=== PATIENT | male | born 1965 ===

== ENCOUNTER 2024-09-09 22:59 | Inpatient (IN) | payer BC, SELFPAY ==
[2024-09-09] VITALS (19 sets, daily range): BP systolic 76–121; BP diastolic 42–81
[2024-09-09] MEDS: AZACTAM 2000 MG IV (20:53)
[2024-09-09 20:54] LABS: Urine Albumin 1+ (Neg - Trace); Urine Bilirubin 1+ (Negative); Urine Character Slightly Cloudy (Clear); Urine Color Yellow; Urine Glucose Negative (Negative); Urine Ketone Trace (Negative); Urine Leukocyte Trace (Negative); Urine Nitrite Negative (Negative); Urine Occult Blood 4+ (Negative); Urine Urobilinogen 2+ (Neg - 1+)
[2024-09-09] MEDS: VANCOCIN 540 MG IV (20:54)
--- NOTE | 2024-09-09 20:54 | ED.GENMED ---
History of Present Illness
General
Chief Complaint: Fever
Source: patient and [facility] records
Exam Limitations: clinical condition and non verbal-adult
Time Seen by Provider: 09/09/24 20:11
Nursing documentation reviewed up to this point in time: agreed with
History of Present Illness
History of Present Illness:
59-year-old male from [facility] presents with fever,
EMS reports finding of tachypneic tachycardic hypotensive was started on IV fluids here he is high fever apparently had a stroke, colitis, has a G-tube with drainage, no indwelling catheter he has had aspiration pneumonia previously
Update discussed with son at bedside who is his power of piercer June 01 of this year he had what sounds like a hemorrhagic cerebellar stroke treated with craniotomy in [place] he was brought to a rehab facility few months ago to be
closer to his son son states he has had several episodes of pneumonia,
Past History
Past History
ED Past Medical History: Other (Stroke, aspiration pneumonia, colitis, G-tube)
Social History
Tobacco: Other
Alcohol: Other
Personal: Other
Living: [facility]
Employment: Not employed
Family History
Family History: Unable to obtain (Nonverbal)
Review of Systems
Review of Systems
Unable to obtain full review of systems at this time due to: non-verbal
Other source history: transfer record
All Other Systems: Not applicable
Phy Exam
Physical Exam
Physical Exam:
Physical Exam
General: Ill-appearing male nonverbal febrile hypotensive
Neck: Dry lip
Heart: Tachycardic
Lungs: Tachypneic rhonchi right greater than
Abdomen: Soft no guarding or rebound no Peoples catheter in place does have a G-tube
Neuro: Nonverbal minimally responsive
Skin: no rash
Psychiatric: Unable to assess
Extremities: no edema.
Sepsis
Sepsis Screening
Sepsis Assessment: Septic Shock
Sepsis Screening: Lactate >2mmol/L, Hypotension, Worsening O2 Saturation and Vasopressor support required
Sepsis Screen
Sepsis Screen: Septic Shock
Date: 09/09/24
Time: 21:21
Course
Orders/Labs/Results
Orders:
Orders
09/09/24 20:01
Electrocardiogram (*1) Urgent
Reason for Study: Other
Other Reason for Exam: Possible Sepsis
Cardiac Monitoring- Treatment ONCE
EKG- Treatment ONCE
IV Insert/Care/Rem.- Treatment PRN
Straight cath- Treatment ONCE
O2 Therapy [RESP] Urgent
Titrate/Wean O2 to maintain O2 sat greater than (%): 93
Special Instructions: TO MAINTAIN CONTINUOUS O2 SATS > OR = 93%
Pulse Ox/cont/shift [RESP] Urgent
Quantity: 1
Special Instructions: CONTINUOUS
09/09/24 20:02
Portable Chest Xray [CR Chest Portable - 1 View] Urgent
Comment:
Reason For Exam: sob
Reason Study Needs to be Portable: Patient Unstable
09/09/24 20:07
Acetaminophen [Tylenol/Feverall] 650 mg .ROUTE .STK-MED ONE
09/09/24 20:33
COVID-19 Antigen Urgent
Source: Nasal Swab
Complete Blood Count/With Diff Urgent
Comprehensive Metabolic Panel Urgent
Lactic Acid Q4H
Comment: ON ICE, CANCEL 2ND ORDER IF FIRST LACTIC ACID LEVEL <2
Urinalysis Reflex To Culture Urgent
Date Specimen was Collected: 09/09/24
Time Specimen was Collected: 20:01
Urine Microscopic Reflex Cult Urgent
Blood Culture Urgent
VINNY Source: Blood/Venous
Specimen Description:
Influenza A+B Rapid Molecular Urgent
VINNY Source: Nasal Swab
Specimen Description:
09/09/24 20:34
ABG [Arterial Blood Gas] Urgent
%Oxygen/Room Air: 4
Aztreonam [Azactam] 2,000 mg IV NOW STA
Vancomycin [Vancocin] 2,000 mg 0.9% Sodium Chloride 500 ml [Nss] 500 ml IV NOW
09/09/24 20:53
Blood Culture Urgent
VINNY Source: Blood/Venous
Specimen Description:
09/09/24 21:00
0.9% Sodium Chloride 1000 ml [Nss] 1,000 ml IV BOLUS
NORepinephrine 4 MG/250 ML [Levophed] 4 mg in 250 ml IV PER PROTOCOL
Initial dose in mcg/min, then titrate:: 2
Titrate to keep:: SBP > 90 mmHg
Titrate by mcg/min:: 1-2 mcg/min
Frequency of titrations (minutes):: 5
Maximum dose in ICU in mcg/min:: 30
Maximum dose in IMU in mcg/min:: 8
Maximum dose in IVU in mcg/min:: 4
Begin to taper infusion when:: Remained at goal for 4hrs
Taper by mcg/min:: 1-2 mcg/min
Frequency of taper (minutes) if patient maintains goal:: 30
Taper to off?: Yes
If infusion off & no longer maintaining goal:: Contact Provider
09/10/24 00:15
Lactic Acid Q4H
Comment: ON ICE, CANCEL 2ND ORDER IF FIRST LACTIC ACID LEVEL <2
Abnormal Lab Results
09/09/24
20:33
WBC 27.6 H 10^3/uL
(4.8-10.8)
RBC 3.72 L 10^6/uL
(4.70-6.10)
Hgb 11.4 L g/dL
(13.0-18.0)
Hct 34.7 L %
(39.0-52.0)
MCHC 32.9 L g/dL
(33.0-37.0)
RDW 15.1 H %
(11.5-14.5)
Abs Immat Gran (auto) 0.2 H 10^3/uL
(0-0.05)
Absolute Neuts (auto) 26.0 H 10^3/uL
(1.4-6.5)
Absolute Lymphs (auto) 0.5 L 10^3/uL
(1.2-3.4)
Absolute Monos (auto) 0.9 H 10^3/uL
(0.1-0.6)
Immature Gran % 0.7 H %
(0-0.5)
Neutrophils % 94.2 H %
(42.2-75.2)
Lymphocytes % 1.6 L %
(20.5-51.1)
Sodium 134 L mmol/L
(135-145)
BUN 34 H mg/dl
(9-20)
Glucose 102 H mg/dl
(70-99)
Lactic Acid 3.1 H mmol/L
(0.7-2.0)
ALT 52 H U/L
(0-50)
Total Protein 5.7 L g/dl
(6.3-8.2)
Albumin 2.9 L g/dl
(3.5-5.0)
Urine Ketones Trace A
(Negative)
Ur Occult Blood Reflex 4+ A
(Negative)
Urine Bilirubin 1+ A
(Negative)
Urine Urobilinogen 2+ A
(Neg - 1+)
Leukocyte Esterase Rfl Trace A
(Negative)
Urine RBC 11-15 A /HPF
(0-2)
Urine Albumin (Reflex) 1+ A
(Neg - Trace)
09/09/24 20:33
09/09/24 20:33
Vital Signs
Initial and Last Documented VS:
Initial Vital Signs
Pulse Resp BP Pulse Ox
149 15 121/81 90
09/09/24 20:01 09/09/24 20:01 09/09/24 20:01 09/09/24 20:01
Last Documented Vital Signs
Temp Pulse Resp BP Pulse Ox
102.4 F H 130 34 98/59 95
09/09/24 20:03 09/09/24 21:00 09/09/24 21:00 09/09/24 21:00 09/09/24 21:00
MDM/Problems Addressed
Differential Diagnosis Includes:
Sepsis UTI pneumonia bacteremia
MDM/Problems Addressed:
Fever
Chronic conditions affecting care:
jail resident, G-tube prior stroke
Chronic conditions affecting care: Neurological disorder
Acute Exacerbation and/or Progression of Chronic Illness: Neurological disorder
*Radiology
Radiology exam reviewed: radiology read reviewed
*Pulse Oximetry
Patient hypoxic: yes
*EKG
Interpretation: abnormal
Comparison EKG: no comparison EKG present
Heart Rate: 78
Rate: tachycardiac
Rhythm: sinus
Ischemia: non-specific ST changes
*House Manager Interpretation
Rate: normal and tachycardiac
Interpretation: normal
Heart Rate: 120
Rhythm: sinus
*Critical Care Note
Total Time (30-74mins, 75-104mins- exclusive of procedures): 31
Update Note
Update Note:
Update, patient with signs symptoms of sepsis, chest x-ray noted fits clinically, his abdomen is soft, urine is pending allergies are noted 30 cc/kg been ordered, antibiotics have been ordered Levophed on standby
CRITICAL CARE STATEMENT: A total of 31 minutes of critical care time was provided for this patient. This includes management of unstable vital signs, evaluation of the patient at bedside, reviewing the patient's pertinent medical records discussion
with EMS providers and patient's family in addition to discussion with consultants, review of old EKGs and review of pertinent medical records. This time with separate from time utilized to perform the aforementioned documented procedures
ED Attending Note
-
Portions of this chart may have been created with voice recognition software.� Occasional wrong word or��sound alike� substitutions may have occurred due to the inherent limitations of voice recognition software.
Discharge Plan
Departure
Patient Disposition: Admit
Date of Disposition: 09/09/24
Time of Disposition: 21:11
Admit to: ICU
Presentation/result/management discussed w/ accepting MD/DO: Hospitalist
Patient with high blood pressure during this ER visit?: No
Condition: Serious
Covid-19: Negative COVID-19
Discharge Problem:
Septic shock
Prescriptions:
No Action
methocarbamol 500 mg Tablet
500 mg feeding tube TID
atorvastatin 80 mg Tablet
80 mg feeding tube HS
acetaminophen [Tylenol] 325 mg Tablet
650 mg feeding tube Q4HPRN MDD 3000 mg PRN (Reason: mild pain/fever >100)
ipratropium-albuterol 0.5 mg-3 mg(2.5 mg base)/3 mL Solution For Nebulization
3 ml INHALATION R Q6HPRN PRN (Reason: wheezing)
polyethylene glycol 3350 17 gram Powder In Packet
17 g feeding tube DAILYPRN PRN (Reason: constipation)
naloxone 0.4 mg/mL Solution
0.4 mg SC DAILYPRN PRN (Reason: opioid reversal)
prochlorperazine maleate 5 mg Tablet
5 mg feeding tube Q6H
ondansetron HCl [Zofran] 4 mg Tablet
4 mg feeding tube Q6HPRN PRN (Reason: nausea/vomiting)
magnesium hydroxide [Milk of Magnesia] 400 mg/5 mL Suspension
30 ml feeding tube [id number] PRN (Reason: no bm 3 days)
meclizine 25 mg Tablet
25 mg feeding tube TID
bisacodyl [Dulcolax (bisacodyl)] 10 mg Suppository
10 mg IL DAILYPRN PRN (Reason: if mom is ineffective)
lidocaine 5 % Adhesive Patch,Medicated
1 patch TOPICAL DAILY
Fleet Enema 19-7 gram/118 mL Enema
118 ml IL DAILYPRN PRN (Reason: if dulcolax ineffective)
camphor-menthol 0.3-0.3 % Gel
1 ea TOPICAL Q8HPRN PRN (Reason: mild pain)
aspirin 81 mg Tablet,Chewable
81 mg feeding tube DAILY
scopolamine base 1 mg over 3 days Patch 3 Day
1 patch TRANSDERMAL Q72H
labetalol 100 mg Tablet
100 mg feeding tube Q8H
Rx Instructions:
Hold if SBP<100 and HR<60
fluticasone propionate 50 mcg/actuation [place],Suspension
1 spray INTRANASAL BID
simethicone 80 mg Tablet,Chewable
80 mg feeding tube Q6HPRN PRN (Reason: flatulence)
enoxaparin 40 mg/0.4 mL Syringe
40 mg SC DAILY
esomeprazole magnesium [address] For Susp In Packet
20 mg feeding tube DAILY
magnesium oxide 400 mg magnesium Tablet
400 mg feeding tube DAILY
banana [id number] 5 gram-45 kcal/60 mL Liquid In Packet
60 ml FEEDING TUBE TID
Interventions
Interventions:
*Risk Screen - Suicide Last Done: 09/09/24 20:03
*General Assessment Last Done: 09/09/24 20:03
*Neglect/Abuse Screening Last Done: 09/09/24 20:03
*ED COVID-19 Vaccine History Last Done: 09/09/24 20:03
Discharge Date and Time
Print Language: KHMER
[2024-09-09 20:56] LABS: Hematocrit 34.7 % (39.0-52.0); Hemoglobin 11.4 g/dL (13.0-18.0); Mean Corp Hgb Conc. 32.9 g/dL (33.0-37.0); Mean Corpuscular Hgb 30.6 pg (27.0-31.0); Mean Corpuscular Volume 93.3 fL (80.0-94.0); Mean Platelet Volume 10.4 fL (7.4-10.4); Platelet Count 309 10^3/uL (130-400); Red Blood Cell Count 3.72 10^6/uL (4.70-6.10); Red Cell Dist. Width 15.1 % (11.5-14.5); White Blood Cell Count 27.6 10^3/uL (4.8-10.8)
[2024-09-09 20:57] LABS: Lactic Acid 3.1 mmol/L (0.7-2.0)
[2024-09-09 21:02] LABS: COVID-19 Antigen Negative (Negative)
[2024-09-09 21:04] LABS: ALT (SGPT) 52 U/L (0-50); AST (SGOT) 40 U/L (17-59); Albumin 2.9 g/dl (3.5-5.0); Alkaline Phosphatase 63 U/L (38-126); Blood Urea Nitrogen 34 mg/dl (9-20); Calcium 8.5 mg/dl (8.4-10.2); Carbon Dioxide 25 mmol/L (22-30); Chloride 100 mmol/L (98-107); Glucose 102 mg/dl (70-99); Sodium 134 mmol/L (135-145); Total Bilirubin 0.9 mg/dl (0.2-1.3); Total Protein 5.7 g/dl (6.3-8.2); eGFR > 60.00
[2024-09-09] MEDS: NSS 1000 IV (21:05)
[2024-09-09 21:09] LABS: Urine Mucus Few; Urine Squamous Cell None seen /LPF (Few)
[2024-09-09 21:10] LABS: Urine Hyaline Cast 0-2 /LPF (0-2)
[2024-09-09 21:17] LABS: % Basophils 0.2 % (0-2); % Immature Granulocytes 0.7 % (0-0.5); % Lymphocytes 1.6 % (20.5-51.1); % Monocytes 3.3 % (1.7-9.3); % Neutrophils 94.2 % (42.2-75.2); Absolute Basophils 0.1 10^3/uL (0-0.2); Absolute Immature Granulocytes 0.2 10^3/uL (0-0.05); Absolute Lymphocytes 0.5 10^3/uL (1.2-3.4); Absolute Monocytes 0.9 10^3/uL (0.1-0.6); Nucleated Red Blood Cells % 0 % (-)
[2024-09-09] MEDS: LEVOPHED 250 IV (21:17)
[2024-09-09 22:16] LABS: B.E. -0.8 mmol/L; HCO3 23.4 mmol/L (21-28); O2 Saturation % 99.5 % (94-98); PCO2 36 mmHg (35-48); PO2 103 mmHg (83-108); pH 7.42 (7.35-7.45)
--- NOTE | 2024-09-09 22:48 | HPS.HSE ---
Family Physician
-
Family Physician: Francis Ramirez
Chief Complaint
-
Fever, SOB
History of Present Illness
Patient is a 59y M with PMH significant for hemorrhagic CVA (05/2024) who presents to ED for evaluation of fever and SOB noted at the nursing facility. History obtained from NH record, ED staff and son at the bedside. Patient is a 59y M who did
not have routine medical care prior to suffering a hemorrhagic CVA in 05/2024. He was hospitalized in [place] for a prolonged period of time and that stay was complicated by multiple episodes of pneumonia, aspiration, CDiff infection and
pulmonary embolism. He was treated with craniotomy for his hemorrhagic stroke. Patient was discharged to rehab here in [facility] to be closer to his son. He has had recurrent issues with aspiration - though he is NPO and receives all meds and
nutrition via J-tube. He was treated with an unknown antibiotic about 10 days ago for suspected aspiration pneumonia.
Yesterday evening, son noted that the patient seemed to have increased work of breathing and was less interactive. He has been having greater difficulty with speech over the past week or so.
Following his stroke, he has significant ataxia and L facial droop. He is able to move all extremities at baseline per his son. He has been unable to walk since his initial CVA.
Medical History
Past Medical History
Past Medical History: Reports Other
Additional Past Medical History:
Hemorrhagic Cerebellar CVA (05/2024)
Dysphagia / Dysarthria
Hypertension
Pulmonary Embolism
C Diff Colitis
Past Surgical History: Reports Other
Additional Past Surgical History:
Left Occipital Craniotomy
J-Tube Placement
IVC Filter Placement
Social History
Tobacco: Non-smoker
Alcohol: None
Drug: None
Family History
Family History: Hypertension and Other (Mother: CVA)
Allergies / Home Medications
Allergies reflects when Allergies were last updated in [facility].
Home Medications with original date entered in [facility]
Allergy/Medication List:
Allergies
Allergy/AdvReac Type Severity Reaction Status Date / Time
cefepime Allergy Unknown Verified 09/09/24 20:38
piperacillin [From Zosyn] Allergy Unknown Verified 09/09/24 20:38
tazobactam [From Zosyn] Allergy Unknown Verified 09/09/24 20:38
Home Medications
acetaminophen 325 mg tablet (Tylenol) 650 mg feeding tube Q4HPRN PRN mild pain/fever >100 09/09/24
aspirin 81 mg chewable tablet 81 mg feeding tube DAILY 09/09/24
atorvastatin 80 mg tablet 80 mg feeding tube HS 09/09/24
banana [id number] 5 gram-45 kcal/60 mL tube feed liquid packet 60 ml feeding tube TID 09/09/24
bisacodyl 10 mg rectal suppository (Dulcolax (bisacodyl)) 10 mg WA DAILYPRN PRN if mom is ineffective 09/09/24
camphor-menthol 0.3 %-0.3 % topical gel 1 ea topical Q8HPRN PRN mild pain 09/09/24
enoxaparin 40 mg/0.4 mL subcutaneous syringe 40 mg SC DAILY 09/09/24
esomeprazole magnesium 20 mg granules delayed release for susp 20 mg feeding tube DAILY 09/09/24
fluticasone propionate 50 mcg/actuation nasal spray,suspension 1 spray intranasal BID 09/09/24
ipratropium 0.5 mg-albuterol 3 mg (2.5 mg base)/3 mL nebulization soln 3 ml inhalation R Q6HPRN PRN wheezing 09/09/24
labetalol 100 mg tablet 100 mg feeding tube Q8H 09/09/24
lidocaine 5 % topical patch 1 patch topical DAILY back 09/09/24
magnesium hydroxide 400 mg/5 mL oral suspension (Milk of Magnesia) 30 ml feeding tube [id number] PRN no bm 3 days 09/09/24
magnesium oxide 400 mg feeding tube DAILY 09/09/24
meclizine 25 mg tablet 25 mg feeding tube TID 09/09/24
methocarbamol 500 mg tablet 500 mg feeding tube TID 09/09/24
naloxone 0.4 mg/mL injection solution 0.4 mg SC DAILYPRN PRN opioid reversal 09/09/24
ondansetron HCl 4 mg tablet 4 mg feeding tube Q6HPRN PRN nausea/vomiting 09/09/24
polyethylene glycol 3350 17 gram oral powder packet 17 g feeding tube DAILYPRN PRN constipation 09/09/24
prochlorperazine maleate 5 mg tablet 5 mg feeding tube Q6H 09/09/24
scopolamine base 1 mg over 3 days transdermal patch 1 patch transdermal Q72H 09/09/24
simethicone 80 mg chewable tablet 80 mg feeding tube Q6HPRN PRN flatulence 09/09/24
sodium phosphates 19 gram-7 gram/118 mL enema (Fleet Enema) 118 ml WA DAILYPRN PRN if dulcolax ineffective 09/09/24
Review of Systems
-
Unable to obtain full review of systems at this time due to: Patient Non-verbal
History Source: Family
A 12 point ROS was completed and negative except as noted: Yes
EENT: Reports Other (Trouble swallowing. Speech impairment.)
Respiratory: Reports Trouble Breathing
Abdomen/GI: Reports Vomiting and Diarrhea
Physical Exam
Vital Signs
Vital Signs
Temp Pulse Resp BP Pulse Ox
102.4 F H 120 31 83/61 95
09/09/24 20:03 09/09/24 22:30 09/09/24 22:30 09/09/24 22:30 09/09/24 22:30
Physical Exam
General: Other (59y ill-appearing M with increased [id number] / tachypnea.)
HEENT: Other (Dry MM. Mucoid secretions lying on tongue.)
Respiratory: Other (Coarse breath sound over RUL. Decreased BS at bases.)
Cardiac: S1/S2
GI: Soft, Non Tender, Non Distended, Normal Bowel Sounds and Other (Feeding tube in place. Rectal tube in place with liquid stool in device.)
Musculoskeletal: No Clubbing, No Cyanosis and No Edema
Neuro: Awake, Alert and Other (RUE weakness. Dysarthria. )
Laboratory Results
-
09/09/24 20:33
09/09/24 20:33
Laboratory Results
pH 7.42 (7.35-7.45) 09/09/24 22:08
pCO2 36 mmHg (35-48) 09/09/24 22:08
pO2 103 mmHg (83-108) 09/09/24 22:08
HCO3 23.4 mmol/L (21-28) 09/09/24 22:08
Lactic Acid 3.1 mmol/L (0.7-2.0) H 09/09/24 20:33
Total Bilirubin 0.9 mg/dl (0.2-1.3) 09/09/24 20:33
AST 40 U/L (17-59) 09/09/24 20:33
ALT 52 U/L (0-50) H 09/09/24 20:33
Alkaline Phosphatase 63 U/L (38-126) 09/09/24 20:33
Impression/Plan
-
A/P: Patient is a 59y M with PMH significant for prior hemorrhagic CVA and subsequent debilitation who presents to ED from local [place] for evaluation of fever and SOB.
RUL Pneumonia - Likely Aspiration
Septic Shock secondary to the above
- Admit to ICU for further evaluation and treatment.
- Patient presents with fever, tachycardic, tachypnea and leukocytosis with RUL opacity on CXR.
- IV abx with levofloxacin and Flagyl given allergies.
- IVF support.
- Continue pressors as needed for BP support.
- Follow-up culture data.
- Aspiration precautions.
- Channel Specialist, Infectious Disease evaluations.
- Follow for clinical improvement.
Diarrhea
History of CDiff Colitis
Recent Abx Use
- Will cover with enteral vancomycin while on broad-spectrum abx given recent history of CDiff.
- Check CDiff toxin.
s/p Hemorrhagic CVA
Dysarthria / Dysphagia secondary to the above
Ataxia / Ambulatory Dysfunction secondary to the above
- CT done in the ED today with post-operative / post-CVA changes - but no acute intracranial bleeding, etc.
- Neurology evaluation (at family request for ongoing local care).
- Aspiration precautions as noted above.
- PT / OT / Speech evaluations.
Benign Hypertension
- Currently hypotensive secondary to septic shock.
- Hold labetalol acutely and resume if / when necessary.
History of Pulmonary Embolism
DVT Prophylaxis
- s/p IVC Filter placement in [place] and on prophylactic dose Lovenox.
- Continue Lovenox.
Nutrition
- Patient is on Osmolite 1.5 @ 65cc/hr x 22 hours and H2O at 25cc/hr x 22 hours.
- Currently on hold acutely.
- Resume when appropriate.
Code Status: Full
[2024-09-10] VITALS (47 sets, daily range): BP systolic 88–147; BP diastolic 58–129; PULSE 107; O2SAT 95; BMI 23.5; BMI 24.0
[2024-09-10] MEDS: FLAGYL 500 MG 100 IV ×2 (01:46→10:32)
[2024-09-10] MEDS: NSS 1000 IV ×3 (01:58→21:10)
--- NOTE | 2024-09-10 02:07 | W.PN.SEPSIS ---
Sepsis
Vital Signs
Temp Pulse Resp BP Pulse Ox
97.5 F 108 23 106/53 97
09/10/24 00:44 09/09/24 23:45 09/09/24 23:45 09/09/24 23:45 09/09/24 23:45
Physical Exam
Physical Exam:
A focused exam was performed after fluid resuscitation.
Capillary Refill
Bilateral Upper Extremity:
Yobany Time: Less than 3 sec
Bilateral Lower Extremity:
Yobany Time: Less than 3 sec
Pulse Evaluation
Bilateral Radial:
Pulse Evaluation: Present
Bilateral Dorsalis Pedis:
Pulse Evaluation: Present
[2024-09-10 02:11] LABS: Lactic Acid 3.9 mmol/L (0.7-2.0)
[2024-09-10] MEDS: FIRVANQ 125 MG TUBE ×3 (02:33→12:18)
[2024-09-10 05:37] LABS: Hematocrit 29.4 % (39.0-52.0); Mean Corpuscular Hgb 31.2 pg (27.0-31.0); Mean Corpuscular Volume 91.6 fL (80.0-94.0); Mean Platelet Volume 10.5 fL (7.4-10.4); Platelet Count 265 10^3/uL (130-400); Red Blood Cell Count 3.21 10^6/uL (4.70-6.10); Red Cell Dist. Width 14.9 % (11.5-14.5); White Blood Cell Count 24.3 10^3/uL (4.8-10.8)
[2024-09-10 05:57] LABS: Lactic Acid 2.8 mmol/L (0.7-2.0)
--- NOTE | 2024-09-10 06:00 | PTCARENOTE ---
Levo gtt tapered down to 2 mcg/min.
[2024-09-10 06:20] LABS: INR 1.11; PT 14.8 Sec (11.4-14.6)
[2024-09-10 06:22] LABS: APTT 35.1 Sec (23.4-35.0)
[2024-09-10 07:06] LABS: ALT (SGPT) 40 U/L (0-50); AST (SGOT) 23 U/L (17-59); Albumin 2.5 g/dl (3.5-5.0); Alkaline Phosphatase 64 U/L (38-126); Blood Urea Nitrogen 29 mg/dl (9-20); Calcium 8.5 mg/dl (8.4-10.2); Carbon Dioxide 28 mmol/L (22-30); Chloride 104 mmol/L (98-107); Estimated Creatinine Clearance 93 ml/min; Glucose 108 mg/dl (70-99); Magnesium 1.7 mg/dl (1.6-2.3); Phosphorus 4.3 mg/dl (2.5-4.5); Potassium 4.3 mmol/L (3.5-5.1); Sodium 137 mmol/L (135-145); Total Bilirubin 0.4 mg/dl (0.2-1.3); Total Protein 4.9 g/dl (6.3-8.2); eGFR > 60.00
--- NOTE | 2024-09-10 08:00 | PTCARENOTE ---
Received patient from shift coordinator. patient assessment as charted. bed alarm on and position in lowest position.
--- NOTE | 2024-09-10 08:15 | CON.NEURO ---
Consultation
Order
Date of Consultation: 09/10/24
Requesting Provider: Eric Tripp DO
Reason for Consult: Status post hemorrhagic CVA
Neurology Consultation Note.
HPI: This is a 59-year-old LH man who presented to [facility] on 09/10/2024 with dyspnea and was found to have septic shock. Neurology consultation was requested to comment on recovery progress from ICH.
According to patient's son Mr. Curry suffered what seems to be a left cerebellar ICH in settings of low blood pressure 150 in May 2024. He underwent left occipital craniotomy for decompression. The patient reportedly has noted to be
encephalopathic due to family visits requiring reorientation to location and timing.
ER VS:83/61, 120, 31, 95, 102.4 F
EKG: sinus tachy, QTc Int : [address] head wo contrast-Left suboccipital craniotomy/decompression with underlying encephalomalacia/atrophy of the left cerebellum and surrounding large postoperative cystic change. Adjacent small amount of probable chronic postsurgical pneumocephalus.
The ventricles are normal in size, configuration, and position for age. There is mild to moderate subcortical, deep, and periventricular white matter low-attenuation, compatible with changes of chronic small vessel ischemic disease.
PMH:L cerebellar ICH, HTN, DLP, h/o PE, dysphagia
PSH: Left occipital craniotomy, J-tube, IVC filter
SH: non-smoker, [place] resident
FH: mother-stroke
All: Cefepime, Zosyn.
ROS: Limited due to encephalopathy.
General: In no acute distress.
Cardio: Regular rate . Extremities are without cyanosis or edema.
Neuro:
Mental Status: Alert, oriented to 'home '. Does not notice his age, date of , location. Poor attention and comprehension. No hemineglect. Follows simple requests intermittently.
Cranial Nerves: Pupils are equally round and reactive to light. Horizontal EOMs full. Blinks to threat bilaterally. No ptosis. No nystagmus. Right facial weakness. Moderate to severe dysarthria.
Motor: Right hemiparesis. Left arm�antigravity spontaneously purposefully. Lower extremities�distal movements are present. No effort antigravity.
Reflexes: Limited exam due to cooperation
Sensory: Able due to poor attention
Coordination: Right dysmetria, left hand action tremor.
Gait: Nonambulatory.
Assessment and Plan:
I. Multifactorial encephalopathy (vascular, infectious)
II. History of left cerebellar ICH status post left occipital craniotomy. Unable to prognosticate due to current sepsis.
III. Septic shock
-Telemetry monitoring
-Avoid cerebral hypoperfusion and hypoxia.
-Continue aspirin 81 mg once a day
-Please check TSH, free T4.
-Please obtain medical records from [facility]
-DVT prophylaxis.
-Spoke to patient's son regarding current neuroexam, neuroimaging data, differential diagnosis time spent on the conversation�13 minutes.All questions were answered.
I personally reviewed all radiology and labs along with past medical records pertinent to current medical problems. Total time spent in patient care is 63 minutes.
Thank you for allowing us to participate in the care of this patient. We will continue to follow. Please do not hesitate to contact us with any questions or concerns.
Subjective/Objective
Subjective Data
Date of Service: September 10, 2024
Objective Data
Vital Signs
Temp Pulse Resp BP Pulse Ox
36.6 C 98 22 124/74 98
09/10/24 03:30 09/10/24 05:45 09/10/24 05:45 09/10/24 05:45 09/10/24 05:45
Lab Results
09/10/24 05:06
09/10/24 06:38
PT 14.8 Sec (11.4-14.6) H 09/10/24 05:06
INR 1.11 09/10/24 05:06
APTT 35.1 Sec (23.4-35.0) H 09/10/24 05:06
Sodium 137 mmol/L (135-145) 09/10/24 06:38
Potassium 4.3 mmol/L (3.5-5.1) 09/10/24 06:38
BUN 29 mg/dl (9-20) H 09/10/24 06:38
Glucose 108 mg/dl (70-99) H 09/10/24 06:38
Calcium 8.5 mg/dl (8.4-10.2) 09/10/24 06:38
Phosphorus 4.3 mg/dl (2.5-4.5) 09/10/24 06:38
Patient Allergies
cefepime Allergy (Verified 09/09/24 20:38)
Unknown
piperacillin [From Zosyn] Allergy (Verified 09/09/24 20:38)
Unknown
tazobactam [From Zosyn] Allergy (Verified 09/09/24 20:38)
Unknown
Medications
-
Active Medications
Generic Name Dose Route Start Last Admin
Trade Name Freq PRN Reason Stop Dose Admin
Acetaminophen 650 mg 09/10/24 00:48
Acetaminophen 325 Mg Tablet TUBE 10/08/24 00:47
Q4HPRN PRN
mild pain/fever >101
Albuterol Sulfate 2.5 mg 09/10/24 00:48
Albuterol Nebs 2.5 Mg/3 Ml Ampul INH
R Q4HPRN PRN
SOB
Protocol
Aspirin 81 mg 09/10/24 08:00
Aspirin 81 Mg Chewable Tablet TUBE 10/08/24 07:59
DAILY SAVAGE
Atorvastatin Calcium 80 mg 09/10/24 22:00
Atorvastatin (Lipitor) 80 Mg Tablet TUBE 10/08/24 21:59
HS SAVAGE
Enoxaparin Sodium 40 mg 09/10/24 08:00
Enoxaparin Sodium 40 Mg/0.4 Ml Syringe SC 10/08/24 07:59
DAILY SAVAGE
Norepinephrine Bitartrate 4 mg in 250 mls @ 0 mls/hr 09/09/24 21:00 09/09/24 21:17
Levophed IV 250 mls
PER PROTOCOL SAVAGE Administration
Protocol
Per Protocol
Levofloxacin/Dextrose 500 mg in 100 mls @ 100 mls/hr 09/10/24 08:00
Levaquin IV
Q24H SAVAGE
Metronidazole 100 mls @ 100 mls/hr 09/10/24 02:00 09/10/24 01:46
Flagyl 500 Mg IV 100 mls
Q8H SAVAGE Administration
Sodium Chloride 1,000 mls @ 150 mls/hr 09/10/24 00:48 09/10/24 01:58
Nss IV 1,000 mls
.Q6H40M SAVAGE Administration
Pantoprazole Sodium 40 mg 09/10/24 08:00
Pantoprazole Sodium 40 Mg/10 Ml Vial IV 10/08/24 07:59
DAILY SAVAGE
Sodium Chloride 0 flush 09/10/24 02:00
Sodium Chloride 0.9% (Flush) Syringe IV 10/08/24 01:59
PER PROTOCOL SAVAGE
Vancomycin HCl 125 mg 09/10/24 00:48 09/10/24 06:02
Vancomycin Oral Solution 50 Mg/Ml In Oral Syringe TUBE 125 mg
Q6 SAVAGE Administration
Home Medications
�Medication �Instructions �Recorded
acetaminophen 325 mg tablet 650 mg feeding tube Q4HPRN PRN 09/09/24
(Tylenol) mild pain/fever >100
aspirin 81 mg chewable tablet 81 mg feeding tube DAILY 09/09/24
atorvastatin 80 mg tablet 80 mg feeding tube HS 09/09/24
banana [id number] 5 gram-45 60 ml feeding tube TID 09/09/24
kcal/60 mL tube feed liquid packet
bisacodyl 10 mg rectal suppository 10 mg LA DAILYPRN PRN if mom is 09/09/24
(Dulcolax (bisacodyl)) ineffective
camphor-menthol 0.3 %-0.3 % 1 ea topical Q8HPRN PRN mild pain 09/09/24
topical gel
enoxaparin 40 mg/0.4 mL 40 mg SC DAILY 09/09/24
subcutaneous syringe
esomeprazole magnesium 20 mg 20 mg feeding tube DAILY 09/09/24
granules delayed release for susp
fluticasone propionate 50 1 spray intranasal BID 09/09/24
mcg/actuation nasal
spray,suspension
ipratropium 0.5 mg-albuterol 3 mg 3 ml inhalation R Q6HPRN PRN 09/09/24
(2.5 mg base)/3 mL nebulization wheezing
soln
labetalol 100 mg tablet 100 mg feeding tube Q8H 09/09/24
lidocaine 5 % topical patch 1 patch topical DAILY back 09/09/24
magnesium hydroxide 400 mg/5 mL 30 ml feeding tube [id number] PRN no 09/09/24
oral suspension (Milk of Magnesia) bm 3 days
magnesium oxide 400 mg feeding tube DAILY 09/09/24
meclizine 25 mg tablet 25 mg feeding tube TID 09/09/24
methocarbamol 500 mg tablet 500 mg feeding tube TID 09/09/24
naloxone 0.4 mg/mL injection 0.4 mg SC DAILYPRN PRN opioid 09/09/24
solution reversal
ondansetron HCl 4 mg tablet 4 mg feeding tube Q6HPRN PRN 09/09/24
nausea/vomiting
polyethylene glycol 3350 17 gram 17 g feeding tube DAILYPRN PRN 09/09/24
oral powder packet constipation
prochlorperazine maleate 5 mg 5 mg feeding tube Q6H 09/09/24
tablet
scopolamine base 1 mg over 3 days 1 patch transdermal Q72H 09/09/24
transdermal patch
simethicone 80 mg chewable tablet 80 mg feeding tube Q6HPRN PRN 09/09/24
flatulence
sodium phosphates 19 gram-7 118 ml LA DAILYPRN PRN if dulcolax 09/09/24
gram/118 mL enema (Fleet Enema) ineffective
Vital Signs and Labs
-
Vital Signs and Labs:
Vital Signs
Temp Pulse Resp BP Pulse Ox
36.8 C 108 22 107/82 96
09/10/24 12:13 09/10/24 12:45 09/10/24 12:45 09/10/24 12:30 09/10/24 12:45
Lab Results
09/10/24 05:06
09/10/24 06:38
PT 14.8 Sec (11.4-14.6) H 09/10/24 05:06
INR 1.11 09/10/24 05:06
APTT 35.1 Sec (23.4-35.0) H 09/10/24 05:06
Sodium 137 mmol/L (135-145) 09/10/24 06:38
Potassium 4.3 mmol/L (3.5-5.1) 09/10/24 06:38
BUN 29 mg/dl (9-20) H 09/10/24 06:38
Glucose 108 mg/dl (70-99) H 09/10/24 06:38
Calcium 8.5 mg/dl (8.4-10.2) 09/10/24 06:38
Phosphorus 4.3 mg/dl (2.5-4.5) 09/10/24 06:38
Medications
-
Medications:
Generic Name Dose Route Start Last Admin
Trade Name Freq PRN Reason Stop Dose Admin
Acetaminophen 650 mg 09/10/24 00:48
Acetaminophen 325 Mg Tablet TUBE 10/08/24 00:47
Q4HPRN PRN
mild pain/fever >101
Albuterol Sulfate 2.5 mg 09/10/24 00:48
Albuterol Nebs 2.5 Mg/3 Ml Ampul INH
R Q4HPRN PRN
SOB
Protocol
Aspirin 81 mg 09/10/24 08:00 09/10/24 08:38
Aspirin 81 Mg Chewable Tablet TUBE 10/08/24 07:59 81 mg
DAILY SAVAGE Administration
Atorvastatin Calcium 80 mg 09/10/24 22:00
Atorvastatin (Lipitor) 80 Mg Tablet TUBE 10/08/24 21:59
HS SAVAGE
Enoxaparin Sodium 40 mg 09/10/24 08:00 09/10/24 08:38
Enoxaparin Sodium 40 Mg/0.4 Ml Syringe SC 10/08/24 07:59 40 mg
DAILY SAVAGE Administration
Vancomycin HCl 1,250 mg/ 275 mls @ 183.33 mls/hr 09/10/24 14:20
Sodium Chloride IV 09/10/24 15:49
NOW STA
Vancomycin HCl 1 gram in 200 mls @ 200 mls/hr 09/11/24 06:00
Vancocin IV
Q12H SAVAGE
Protocol
Meropenem 500 mg 09/10/24 18:00
Meropenem 500 Mg/10 Ml Vial IV
Q6H SAVAGE
Pantoprazole Sodium 40 mg 09/10/24 08:00 09/10/24 08:38
Pantoprazole Sodium 40 Mg/10 Ml Vial IV 10/08/24 07:59 40 mg
DAILY SAVAGE Administration
Sodium Chloride 0 flush 09/10/24 02:00
Sodium Chloride 0.9% (Flush) Syringe IV 10/08/24 01:59
PER PROTOCOL SAVAGE
Sodium Chloride 10 ml 09/11/24 08:00
Sodium Chloride 0.9% (Preservative Free) 10 Ml Vial IV 10/09/24 07:59
DAILY SAVAGE
Sterile Water 10 ml 09/10/24 18:00
Sterile Water For Injection 10 Ml Vial IV 10/08/24 17:59
Q6H SAVAGE
Vancomycin HCl 125 mg 09/11/24 08:00
Vancomycin Oral Solution 50 Mg/Ml In Oral Syringe TUBE
DAILY SAVAGE
Home Medications
-
Home Medications
acetaminophen 325 mg tablet (Tylenol) 650 mg feeding tube Q4HPRN PRN mild pain/fever >100 09/09/24
aspirin 81 mg chewable tablet 81 mg feeding tube DAILY Blood Clot Prevention/Tx 09/09/24
atorvastatin 80 mg tablet 80 mg feeding tube HS High Cholesterol 09/09/24
banana [id number] 5 gram-45 kcal/60 mL tube feed liquid packet 60 ml feeding tube TID Supplement 09/09/24
bisacodyl 10 mg rectal suppository (Dulcolax (bisacodyl)) 10 mg LA DAILYPRN PRN if mom is ineffective 09/09/24
camphor-menthol 0.3 %-0.3 % topical gel 1 ea topical Q8HPRN PRN mild pain 09/09/24
enoxaparin 40 mg/0.4 mL subcutaneous syringe 40 mg SC DAILY Blood Clot Prevention/Tx 09/09/24
esomeprazole magnesium 20 mg granules delayed release for susp 20 mg feeding tube DAILY Gastrointestinal Issue 09/09/24
fluticasone propionate 50 mcg/actuation nasal spray,suspension 1 spray intranasal BID Allergies 09/09/24
ipratropium 0.5 mg-albuterol 3 mg (2.5 mg base)/3 mL nebulization soln 3 ml inhalation R Q6HPRN PRN wheezing 09/09/24
labetalol 100 mg tablet 100 mg feeding tube Q8H Blood Pressure 09/09/24
lidocaine 5 % topical patch 1 patch topical DAILY back PAIN 09/09/24
magnesium hydroxide 400 mg/5 mL oral suspension (Milk of Magnesia) 30 ml feeding tube [id number] PRN no bm 3 days 09/09/24
magnesium oxide 400 mg feeding tube DAILY Electrolyte Repletion 09/09/24
meclizine 25 mg tablet 25 mg feeding tube TID VERTIGO 09/09/24
methocarbamol 500 mg tablet 500 mg feeding tube TID Muscle Spasms 09/09/24
naloxone 0.4 mg/mL injection solution 0.4 mg SC DAILYPRN PRN opioid reversal 09/09/24
ondansetron HCl 4 mg tablet 4 mg feeding tube Q6HPRN PRN nausea/vomiting 09/09/24
polyethylene glycol 3350 17 gram oral powder packet 17 g feeding tube DAILYPRN PRN constipation 09/09/24
prochlorperazine maleate 5 mg tablet 5 mg feeding tube Q6H Gastrointestinal Issue 09/09/24
scopolamine base 1 mg over 3 days transdermal patch 1 patch transdermal Q72H VERTIGO 09/09/24
simethicone 80 mg chewable tablet 80 mg feeding tube Q6HPRN PRN flatulence 09/09/24
sodium phosphates 19 gram-7 gram/118 mL enema (Fleet Enema) 118 ml LA DAILYPRN PRN if dulcolax ineffective 09/09/24
[2024-09-10] MEDS: LEVAQUIN 100 IV (08:36)
[2024-09-10] MEDS: PROTONIX IV 40 MG IV (08:38)
[2024-09-10] MEDS: LOVENOX 40 MG SC (08:38)
[2024-09-10] MEDS: LOW STRENGTH ASPIRIN 81 MG TUBE (08:38)
--- NOTE | 2024-09-10 09:20 | PTOTSP ---
Speech Language Pathology
Pt seen for speech/language evaluation. Mod dysarthria, mod-severe expressive aphasia, and mod-severe receptive aphasia noted.
Pt also seen for clinical bedside swallow evaluation. Oral care completed with use of suction toothbrush. Significantly hyperactive gag reflex noted with gagging when contact made post 1/3rd anterior portion of tongue. Gag noted x3 with minimal
oral care. Lingual atrophy noted. P.O. trial of 2ccs of water via pipetted straw provided. Some oral manipulation noted. However, absent swallow noted with empty oral cavity. Suspect passive posterior spillage and aspiration. Weak and
ineffective coughing noted with immediate increase in HR to 140. Further P.O. trials deferred.
Recommend:
(1) Strict NPO
(2) Oral care 4x/day with suctioning as needed
(3) Meds via J-tube
(4) Not appropriate for Aspiration Risk Hydration Protocol (ARHP) given absent swallow
(5) [facility] to continue to follow
--- NOTE | 2024-09-10 10:09 | PTCARENOTE ---
Per Speech, patient aspirated small amount of liquid during mouth care. HR went into 140s. patient also has very strong gag reflex. will have to be gentle with mouth care to not illicit vomiting.
--- NOTE | 2024-09-10 10:41 | CON.INTV ---
Consultation
Consultation Request
Date/Time Consultation Requested: 09/10/2024
Date/Time Consultation Performed: 09/10/2024
Requesting Provider: Dr. Tripp
Performing Provider: Dr. Jose Wallace
Reason for Consultation: Septic shock due to aspiration pneumonia
Medical History
-
History of Present Illness:
59-year-old man with past medical history significant for hemorrhagic shock May 2024 who was sent from the nursing facility for evaluation regarding fever and shortness of breath. Per custodial records prior to his hemorrhagic stroke
patient did not follow-up with physicians. He was transferred for [place] to the [facility] to be close to his son.
Patient is nonverbal. Apparently patient had multiple episode of aspiration pneumonia, history of C. difficile infection and also history of pulmonary embolism. IVC filter in place and he remains on prophylactic Lovenox.
He is status post craniectomy due to hemorrhagic stroke, G-tube in place.
Chest x-ray demonstrated infiltrate. Patient had mild hypoxemia. Developed hypotension requiring vasopressors.
This morning appears in no distress.
Norepinephrine only at 2 mics per minute
On 2 L of supplemental oxygen
Unable to provide history-baseline.
-
Patient is bedbound after CVA
Past Medical History
Past Medical History: Other (See assessment)
Social History
Tobacco: Non-smoker
Alcohol: None
Drug: None
Family History
Family History: Unable to Obtain
Allergies / Home Medications
Allergies
Allergy/AdvReac Type Severity Reaction Status Date / Time
cefepime Allergy Unknown Verified 09/09/24 20:38
piperacillin [From Zosyn] Allergy Unknown Verified 09/09/24 20:38
tazobactam [From Zosyn] Allergy Unknown Verified 09/09/24 20:38
Home Medications
�Medication �Instructions �Recorded �Confirmed �Last Taken �Type
acetaminophen 325 mg tablet 650 mg feeding tube Q4HPRN PRN 09/09/24 09/09/24 Unknown History
(Tylenol) mild pain/fever >100
aspirin 81 mg chewable tablet 81 mg feeding tube DAILY 09/09/24 09/09/24 Unknown History
atorvastatin 80 mg tablet 80 mg feeding tube HS 09/09/24 09/09/24 Unknown History
banana [id number] 5 gram-45 60 ml feeding tube TID 09/09/24 09/09/24 Unknown History
kcal/60 mL tube feed liquid packet
bisacodyl 10 mg rectal suppository 10 mg SC DAILYPRN PRN if mom is 09/09/24 09/09/24 Unknown History
(Dulcolax (bisacodyl)) ineffective
camphor-menthol 0.3 %-0.3 % 1 ea topical Q8HPRN PRN mild pain 09/09/24 09/09/24 Unknown History
topical gel
enoxaparin 40 mg/0.4 mL 40 mg SC DAILY 09/09/24 09/09/24 Unknown History
subcutaneous syringe
esomeprazole magnesium 20 mg 20 mg feeding tube DAILY 09/09/24 09/09/24 Unknown History
granules delayed release for susp
fluticasone propionate 50 1 spray intranasal BID 09/09/24 09/09/24 Unknown History
mcg/actuation nasal
spray,suspension
ipratropium 0.5 mg-albuterol 3 mg 3 ml inhalation R Q6HPRN PRN 09/09/24 09/09/24 Unknown History
(2.5 mg base)/3 mL nebulization wheezing
soln
labetalol 100 mg tablet 100 mg feeding tube Q8H 09/09/24 09/09/24 Unknown History
lidocaine 5 % topical patch 1 patch topical DAILY back 09/09/24 09/09/24 Unknown History
magnesium hydroxide 400 mg/5 mL 30 ml feeding tube [id number] PRN no 09/09/24 09/09/24 Unknown History
oral suspension (Milk of Magnesia) bm 3 days
magnesium oxide 400 mg feeding tube DAILY 09/09/24 09/09/24 Unknown History
meclizine 25 mg tablet 25 mg feeding tube TID 09/09/24 09/09/24 Unknown History
methocarbamol 500 mg tablet 500 mg feeding tube TID 09/09/24 09/09/24 Unknown History
naloxone 0.4 mg/mL injection 0.4 mg SC DAILYPRN PRN opioid 09/09/24 09/09/24 Unknown History
solution reversal
ondansetron HCl 4 mg tablet 4 mg feeding tube Q6HPRN PRN 09/09/24 09/09/24 Unknown History
nausea/vomiting
polyethylene glycol 3350 17 gram 17 g feeding tube DAILYPRN PRN 09/09/24 09/09/24 Unknown History
oral powder packet constipation
prochlorperazine maleate 5 mg 5 mg feeding tube Q6H 09/09/24 09/09/24 Unknown History
tablet
scopolamine base 1 mg over 3 days 1 patch transdermal Q72H 09/09/24 09/09/24 Unknown History
transdermal patch
simethicone 80 mg chewable tablet 80 mg feeding tube Q6HPRN PRN 09/09/24 09/09/24 Unknown History
flatulence
sodium phosphates 19 gram-7 118 ml SC DAILYPRN PRN if dulcolax 09/09/24 09/09/24 Unknown History
gram/118 mL enema (Fleet Enema) ineffective
Review of Systems
-
Unable to Obtain full review of systems at this time due to: Patient Non Verbal
Vitals / Labs / Diagnostic Testing
Vital Signs
Temp Pulse Resp BP Pulse Ox
97.4 F 111 22 122/70 96
09/10/24 08:17 09/10/24 08:45 09/10/24 08:45 09/10/24 08:30 09/10/24 08:45
Lab Data
09/10/24 05:06
09/10/24 06:38
Laboratory Results
09/09/24 09/10/24
22:08 05:06
PT 14.8 H
INR 1.11
APTT 35.1 H
pH 7.42
pCO2 36
pO2 103
HCO3 23.4
O2 Delivery Level
Microbiology
09/09/24 20:33 Nasal Swab Influenza Types A & B (MOISES) - Final
Negative for Influenza A & B, NAAT
Negative results must be combined with clinical observations
and patient history.
Nucleic Acid Amplification test (NAAT)performed on the
[employer] NOW platform.
Diagnostic Testing:
Physical Exam
-
HEENT: Normocephalic
Cardiovascular: S1/S2
Respiratory: Rhonchi (mild)
GI: Soft, Non Distended, Non Tender and Other (J-tube in place)
Neurology: Awake, Alert and Other (Not following commands)
Skin: Warm
General: Comfortable
Assessment
-
59-year-old man with past medical history noted, sent from the custodial for fever and shortness of breath. Found to have right upper lobe infiltrate on chest x-ray. Hypotensive requiring vasopressors and transferred to the critical care unit.
We were consulted for management 09/10/2024
Septic shock
Aspiration pneumonia
Chest x-ray reviewed, showed right upper lobe opacity suggestive of pneumonia.
Leukocytosis
Altered mental vfcird-[id number] baseline
CT head without acute abnormality. Postcraniotomy
Conditions present prior admission:
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
J-tube in place
Dysphagia/dysarthria
Hypertension
Pulmonary embolism
C. difficile infection history of
History of pulmonary embolism-IVC filter in place on prophylactic Lovenox-placed at [facility]
Assessment and plan:
Patient critically ill and septic shock due to aspiration pneumonia
-
Aspiration pneumonia: Seems to be a recurrent problem for him per records
Currently on low supplemental oxygen 2 L-wean off as able
Strict aspiration precautions
Continue current antibiotics
Sputum culture if able
Follow fever curve and leukocytosis
-
Septic shock: Improving.
Will attempt to wean off Levophed to maintain mean arterial blood pressure above 60-65 mmHg.
Initial lactic acid 2.8-now declining to 1.8
Renal function is normal
-
Nebulizers as needed for secretion clearance.
-
Anemia likely chronic. Follow no evidence for bleeding.
-
J-tube output increased.
Benign abdominal exam
Follow serially
Defer to primary team-GI has been consulted.
N.p.o. for
-
DVT prophylaxis-Lovenox
-
Critical care statement: A total of 31 minutes of critical care time was provided for this patient today. This includes management of unstable vital signs, evaluation of the patient at bedside, reviewing the patient's pertinent medical records
including radiographs, microbiology, laboratory evaluations and discussion with primary team, critical care nursing, and respiratory therapy.
[2024-09-10 11:09] LABS: Lactic Acid 1.8 mmol/L (0.7-2.0)
--- NOTE | 2024-09-10 11:21 | W.PN.HOSP.TC ---
Today's Communication/Plan
-
abx as per ID
wean pressor support as tolerated
IR eval for GJ tube adjustment/change
IVF support
PT/OT/ST
Assessment / Plan
Assessment / Plan
Physical Exam
General: No acute distress, appears comfortable at this time
HEENT: normocephalic atraumatic EOMI
Respiratory: Clear to auscultation b/l
Cardiac: S1/S2 sinus tachy
GI: Soft, Non Tender, Non Distended, bowel sounds present, GJ- tube with significant secretions/drainage noted.
Musculoskeletal: No Clubbing, No Cyanosis and No Edema
Neuro: Awake, Alert, RUE weakness, Dysarthria, aphasic
Psych: calm
A/P: Patient is a 59y M with PMH significant for prior hemorrhagic CVA and subsequent debilitation who [place] ED from local [place] for evaluation of fever and SOB.
RUL Pneumonia - Likely Aspiration
Septic Shock secondary to the above
- ICU admit
- Patient presents with fever, tachycardic, tachypnea and leukocytosis with RUL opacity on CXR.
- Treated empirically with IV abx levofloxacin and Flagyl switched to Meropenem and Vancomycin as per ID
-ID eval appreciated
- IVF support.
- Wean pressor as tolerated
- Follow-up culture data.
- Aspiration precautions.
- Electrocardiograph Repairer eval appreciated
History of CDiff Colitis
On broad spectrum abx
-cont PO prophylactic Vancomycin as per ID
s/p Hemorrhagic CVA
Dysarthria / Dysphagia secondary to the above
Ataxia / Ambulatory Dysfunction secondary to the above
- CT appreciated post-operative / post-CVA changes - but no acute intracranial bleeding, etc.
- Neurology eval appreciated
- Aspiration precautions as noted above.
- PT / OT appreciated SNF rehab
- Speech evaluation appreciated
Benign Hypertension
- cont hold home Labetalol with shock low pressures requiring pressor support as above
-will consider restarting if BP elevates
History of Pulmonary Embolism
DVT Prophylaxis
- s/p IVC Filter placement in [place] and on prophylactic dose Lovenox.
- Continue Lovenox.
Nutrition
- Patient is on Osmolite 1.5 @ 65cc/hr x 22 hours and H2O at 25cc/hr x 22 hours.
- Currently on hold acutely.
- Resume when appropriate.
GJ Tube
-significant discharge/drainage noted
-Tube check concerning for malposition, IR consulted for adjustment/change
Code Status: Full
Discussed with patient and patient's son Marty
I spent a total of 60 minutes with the patient or on the floor. More than 50% of this time involved counseling and coordination of care.
Anticipated Discharge: 24 - 48 hours
Subjective/Interval History
-
Date of Service: September 10, 2024
Seen and examined at bedside in no acute distress resting comfortably in bed. Vital signs stable with low dose pressor support at time of evaluation in morning. Significant aphasia noted, fluent speech but at times the responses were
inappropriate to questions (for instance replying with numbers when asked orientation questions to person or place).
Objective Data
-
Labs:
Laboratory Results
09/10/24 09/10/24
05:06 06:38
WBC 24.3 H
Hgb 10.0 L
Hct 29.4 L
Plt Count 265
PT 14.8 H
INR 1.11
APTT 35.1 H
Sodium Cancelled 137
Potassium Cancelled 4.3
Chloride Cancelled 104
Carbon Dioxide Cancelled 28
BUN Cancelled 29 H
Creatinine Cancelled 0.9
Glucose Cancelled 108 H
Calcium Cancelled 8.5
Total Bilirubin Cancelled 0.4
AST Cancelled 23
ALT Cancelled 40
Alkaline Phosphatase Cancelled 64
Vital Signs:
Vital Signs
Temp Pulse Resp BP Pulse Ox
97.4 F 111 22 122/70 96
09/10/24 08:17 09/10/24 08:45 09/10/24 08:45 09/10/24 08:30 09/10/24 08:45
I&O
09/09/24 09/10/24 09/11/24
06:59 06:59 06:59
Intake Total 600 / 600
Output Total 675 / 675
Balance -75 / -75
--- NOTE | 2024-09-10 11:40 | CON.ID ---
Addendum entered and electronically signed by Alysa Mendez MD 09/10/24 15:44:
I personally performed a history and physical exam of the patient and discussed management with the resident. I reviewed the resident's note and agree with the documented findings and plan of care HPI/CC.
59 year old male with prolonged hospital stay in [place] after hemorrhagic CVA in May 2024 then transferred to local SNF since August 12, 2024.
Exam:
Pt awake and able to answer simple question.
Chest: CTAB
CV: RRR S1, S2
Abd: normal BS, soft, nontender, nondistended; Peg tube intact
Ext: no edema
A/P:
# RUL aspiration pneumonia
# Sepsis with fever, leukocytosis
# history of C. difficile
# Recent hx hemorrhagic CVA, prolonged hospital stay
# Dysphagia s/p PEG
# Zosyn/cefepime allergy listed - pt states he tolerated amoxicillin in the past
# SNF resident
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
-Add IV Vancomycin pending MRSA screen.
-Replace levofloxacin with meropenem 500mg IV q6h
-DC metronidazole.
-Follow temps, WBC.
-Aspiration precaution
- No active C. diff. DC C. diff precaution.
- Decrease po vanco dose to prophylactic dose 125mg daily while on systemic abx's.
Original Note:
Consultation
-
Date/Time Consultation Requested: 09/10/2024
Date/Time Consultation Performed: 09/10/2024
Requesting Provider: Eric Tripp DO
Performing Provider: Alysa Mendez MD
Reason for Consultation: Pneumonia
Chief Complaint / Past History
Chief Complaint
Shortness of breath
History of Present Illness
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 difficile infection, who presented
from nursing facility for symptoms of shortness of breath and fever. History obtained from chart and [facility] records. [facility] records showed that the patient had a hemorrhagic stroke back in May in [place], and was
transferred to [facility] Aug 02 to be closer to his son. The patient has had multiple episodes of aspiration pneumonia in the past. Although patient is n.p.o. he receives all his medications and nutrition via J-tube. 2
weeks ago he was treated for aspiration pneumonia (medication unknown). Yesterday evening, patient's son noted that the patient has been having increased shortness of breath and he has been more somnolent. On presentation to ED, blood pressure
was 121/81, temperature 102.4, respiratory rate 32. Laboratory showed WBC 27.6, lactic acid 3.1. Evaluation with a chest x-ray showed right upper lobe airspace disease indicating of probable right upper lobe pneumonia.
At bedside today, patient verbally responsive. He denies symptoms of diarrhea. Patient states he has had MRSA infection in the past. On questioning about penicillin allergy, patient verbally denies allergy to amoxicillin taken in the past.
Past History
Past Medical History: Other (Hemorrhagic cerebral CVA 06/22 s/p craniectomy, j-tube in place, dysphagia, dysarthria, hypertension, pulmonary embolism (IVC filter in place on prophylactic Lovenox), recurrent C. difficile infection)
Allergy History:
cefepime Allergy (Verified 09/09/24 20:38)
Unknown
piperacillin [From Zosyn] Allergy (Verified 09/09/24 20:38)
Unknown
tazobactam [From Zosyn] Allergy (Verified 09/09/24 20:38)
Unknown
Medications Reviewed: Yes
Current Antibiotics:
Vancomycin
Metronidazole
Levofloxacin
Social History
Tobacco: Non-Smoker
Alcohol: None
Drug: None
Review of Systems
Review of Systems
Gasteroenterology: Negative Diarrhea
Vital Signs
Temp Pulse Resp BP Pulse Ox
97.4 F 111 22 122/70 96
09/10/24 08:17 09/10/24 08:45 09/10/24 08:45 09/10/24 08:30 09/10/24 08:45
Physical Exam
Physical Exam
Head: Normocephalic
Eyes: No Conjunctival Hemorrhage
Cardiovascular: S1/S2
Pulmonary: Rales and Rhonchi
Gastrointestinal: Soft, Non Tender, Non Distended and Other (j-tube in place)
Neurological: Awake and Alert
Lab / Diagnostic Study Results
09/10/24 05:06
09/10/24 06:38
Abs Immat Gran (auto) 0.2 10^3/uL (0-0.05) H 09/09/24 20:33
Absolute Neuts (auto) 26.0 10^3/uL (1.4-6.5) H 09/09/24 20:33
Absolute Lymphs (auto) 0.5 10^3/uL (1.2-3.4) L 09/09/24 20:33
Absolute Monos (auto) 0.9 10^3/uL (0.1-0.6) H 09/09/24 20:33
Absolute Basos (auto) 0.1 10^3/uL (0-0.2) 09/09/24 20:33
Immature Gran % 0.7 % (0-0.5) H 09/09/24 20:33
Neutrophils % 94.2 % (42.2-75.2) H 09/09/24 20:33
Lymphocytes % 1.6 % (20.5-51.1) L 09/09/24 20:33
Monocytes % 3.3 % (1.7-9.3) 09/09/24 20:33
Eosinophils % 0.0 % (0-6) 09/09/24 20:33
Basophils % 0.2 % (0-2) 09/09/24 20:33
PT 14.8 Sec (11.4-14.6) H 09/10/24 05:06
INR 1.11 09/10/24 05:06
Lactic Acid 1.8 mmol/L (0.7-2.0) 09/10/24 10:43
Ur Squamous Epith Cells None seen /LPF (Few) 09/09/24 20:33
Microbiology Results
Micro:
09/09/24 20:53 Blood Culture - Pending
Blood/Venous
09/09/24 20:33 Influenza Types A & B (MOISES) - Final
Nasal Swab Negative for Influenza A & B, NAAT
Negative results must be combined with clinical observations
and patient history.
Nucleic Acid Amplification test (NAAT)performed on the
[employer] platform.
09/09/24 20:33 Blood Culture - Pending
Blood/Venous
09/09/2024 chest x-ray; Probable right upper lobe pneumonia. Recommend imaging follow-up to exclude underlying mass.
09/09/2024 CT head without IV contrast; No convincing acute intracranial abnormality noted. Chronic senescent and postsurgical changes as described.
Assessment / Plan
Assessment/plan
# Aspiration pneumonia
#Septic shock requiring pressor.
# Leukocytosis
# History of recurrent C. difficile
-Patient was initiated on vancomycin, levofloxacin, metronidazole at time of presentation.
-Will Narrow Abx to Meropenem and IV vancomycin for pneumonia
-Vancomycin 125mg QD via tube for c- difficile Prophylaxis.
-d/c levofloxacin and metronidazole.
-Check blood cultures, MRSA screen.
-Monitor WBC, temperatures
#Conditions DIRECTOR MEDICAL
Hemorrhagic cerebral CVA
J-tube in place
Dysphagia
History of pulmonary embolism
IVC filter in place requiring prophylactic Lovenox
Hypertension
Recurrent C. difficile infection
--- NOTE | 2024-09-10 13:29 | W.PN.UPDATE ---
Update Note
Progress Note Update
Levophed has been discontinued since earlier today.
Lactic acid trending lower
Patient afebrile
Continue with current care
Will transfer to [facility].
Pulmonary will follow
--- NOTE | 2024-09-10 13:40 | CM ---
CM following re: discharge planning.
Discussed in rounds, reviewed pt's chart, met with pt and spoke to pt's son Marty over the phone.
Pt is a 59 year old male, admitted with primary dx of Septic shock, Aspiration pneumonia.
Per son Marty, pt is admitted to from [facility] where he was for a short term rehab and spend 4 weeks receiving rehabilitation services.
Per son, pt has been improving slowly at [facility] and PT/OT were working on transfer improvement. Pt's son stated: 'i spoke to neurologist and I would like the best for my father and i would like to get my father to most appropriate
facility where he can get better'. Pt's son stated that pt had stroke on May of this year. Pt's son stated that his father will not be able to tolerate 3 hours of therapy in acute rehab level. pt's son is requested to discuss SNF options
after the weekend.
PT and OT evaluations pending. ST evaluation noted.
D/C plan: preferred SNF.
CM will follow to assist pt with discharge to a preferred SNF.
--- NOTE | 2024-09-10 13:57 | PHA.VAN.IN ---
Assessment
- Assessment
Renal Function: Unknown baseline
Maximum Temperature: 102.4
Concomitant Antimicrobials: meropenem and PO vancomycin
AUC Dosing Plan
- Empiric Dosing
Initial / Loading Dose: 2000mg 09/09 20:54
Maintenance Regimen: vanc 1000mg IV q12h starting 09/11 0600, 1250 mg dose now
Estimated AUC (mcg*h/mL): 476
Estimated Peak (mcg*h/mL): 29.9
Estimated Trough (mcg/ml): 12.2
Estimated Half Life (H): 8.5
- Monitoring
No levels ordered at this time: consider in upcoming days
MRSA Screen: Ordered per protocol (PCR)
Pharmacokinetics Vancomycin I
- -
Patient Age: 59
Patient Sex: Male
Vancomycin Day #: 1
Indication: Pulmonary/Respiratory
Requesting Provider: Lisa, Resident Physician
Pertinent Antimicrobial Allergies:
cefepime Allergy (Verified 09/09/24 20:38) Unknown
piperacillin [From Zosyn] Allergy (Verified 09/09/24 20:38) Unknown
tazobactam [From Zosyn] Allergy (Verified 09/09/24 20:38) Unknown
Height / Weight:
Height 5 ft 11 in
Actual Weight 76.5 kg
- Vital Signs / Lab Results
Temp Pulse Resp BP Pulse Ox
98.2 F 108 22 107/82 96
09/10/24 12:13 09/10/24 12:45 09/10/24 12:45 09/10/24 12:30 09/10/24 12:45
Lab Results - Hematology
09/09/24 09/10/24
20:33 05:06
WBC 27.6 H 24.3 H
Lab Results - Chemistry
09/09/24 09/10/24 09/10/24
20:33 05:06 06:38
BUN 34 H Cancelled 29 H
Creatinine 0.9 Cancelled 0.9
Estimated Creat Clear Cancelled 93
Albumin 2.9 L Cancelled 2.5 L
09/09/24 09/10/24 09/10/24
20:33 00:15 01:29
Lactic Acid 3.1 H Cancelled 3.9 H
09/10/24 09/10/24
05:06 10:43
Lactic Acid 2.8 H 1.8
Lab Results - Urine
09/09/24
20:33
Urine Nitrite (Reflex) Negative
Leukocyte Esterase Rfl Trace A
Urine WBC (Reflex) 3-5
Ur Squamous Epith Cells None seen
Microbiology Results
09/09/24 20:33 Influenza Types A & B (MOISES) - Final
Nasal Swab Negative for Influenza A & B, NAAT
Negative results must be combined with clinical observations
and patient history.
Nucleic Acid Amplification test (NAAT)performed on the
[employer] platform.
[2024-09-10] MEDS: ZOFRAN 4 MG IV (14:54)
[2024-09-10] MEDS: VANCOCIN 275 MG IV (14:54)
[2024-09-10] MEDS: STERILE WATER FOR INJECTION 10 ML IV ×2 (18:00→23:59)
[2024-09-10] MEDS: MERREM 500 MG IV ×2 (18:00→23:59)
--- NOTE | 2024-09-10 19:01 | W.PN.IRAD.PR ---
Procedure Note
-
Earlier contrast study via indwelling enteric catheter showed GJ tube with jejunal portion coiled within the stomach. Catheter removed over guidewire and new 18 Fr GJ tube placed under fluoro guidance. The catheter is ready for use.
[2024-09-10] MEDS: LIPITOR 80 MG TUBE (21:11)
[2024-09-11 06:00] VITALS: BMI 24.0
[2024-09-11] MEDS: STERILE WATER FOR INJECTION 10 ML IV ×4 (06:01→23:55)
[2024-09-11] MEDS: MERREM 500 MG IV ×4 (06:01→23:46)
[2024-09-11] MEDS: VANCOCIN 200 IV (06:02)
[2024-09-11] MEDS: NSS 1000 IV (06:11)
--- NOTE | 2024-09-11 07:19 | W.PN.HOSP.TC ---
Today's Communication/Plan
-
abx as per ID
Resume Tube Feeds
PT/OT/ST
Assessment / Plan
Assessment / Plan
Physical Exam
General: No acute distress, appears comfortable at this time
HEENT: normocephalic atraumatic EOMI
Respiratory: Clear to auscultation b/l
Cardiac: S1/S2 sinus tachy
GI: Soft, Non Tender, Non Distended, bowel sounds present, GJ- tube present
Musculoskeletal: No Clubbing, No Cyanosis and No Edema
Neuro: Awake, Alert, RUE weakness, Dysarthria, aphasic
Psych: calm
A/P: Patient is a 59y M with PMH significant for prior hemorrhagic CVA and subsequent debilitation who presents to ED from local OR for evaluation of fever and SOB.
RUL Pneumonia - Likely Aspiration
Septic Shock secondary to the above
- ICU admit downgraded to med/surg
- Patient presented with fever, tachycardic, tachypnea and leukocytosis with RUL opacity on CXR.
- Treated empirically with IV abx levofloxacin and Flagyl switched to Meropenem and Vancomycin as per ID, IV vanc since completed
-ID eval appreciated
- IVF support.
- Weaned off pressor
- Follow-up culture data.
- Aspiration precautions.
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
History of CDiff Colitis
On broad spectrum abx
-cont PO prophylactic Vancomycin as per ID
s/p Hemorrhagic CVA
Dysarthria / Dysphagia secondary to the above
Ataxia / Ambulatory Dysfunction secondary to the above
- CT appreciated post-operative / post-CVA changes - but no acute intracranial bleeding, etc.
- Neurology eval appreciated
- Aspiration precautions as noted above.
- PT / OT appreciated SNF rehab
- Speech evaluation appreciated
Benign Hypertension
Sinus Tachy
- cont hold home Labetalol with shock low pressures requiring pressor support as above
-will consider restarting if BP elevates
-started low dose metoprolol d/t tachycardia, to be switched to Labetalol if bp significantly elevates.
History of Pulmonary Embolism
DVT Prophylaxis
- s/p IVC Filter placement in MA and on prophylactic dose Lovenox.
- Continue Lovenox.
Nutrition
- tube feeds resumed as per dietary recommendations
GJ Tube
-significant discharge/drainage noted
-Tube check concerning for malposition, IR consulted and tube subsequently changed
Code Status: Full
Discussed with patient and patient's son Marty
I spent a total of 50 minutes with the patient or on the floor. More than 50% of this time involved counseling and coordination of care.
Anticipated Discharge: 24 - 48 hours
Subjective/Interval History
-
Date of Service: September 11, 2024
Objective Data
-
Labs:
Laboratory Results
09/11/24
06:00
WBC Pending
Hgb Pending
Hct Pending
Plt Count Pending
Sodium Pending
Potassium Pending
Chloride Pending
Carbon Dioxide Pending
BUN Pending
Creatinine Pending
Glucose Pending
Calcium Pending
Vital Signs:
Vital Signs
Temp Pulse Resp BP Pulse Ox
97.5 F 108 20 97/64 98
09/10/24 23:00 09/10/24 23:00 09/10/24 23:00 09/10/24 23:00 09/10/24 23:00
I&O
09/10/24 09/11/24 09/12/24
06:59 06:59 06:59
Intake Total 600 / 600 300 / 300
Output Total 675 / 675 500 / 500
Balance -75 / -75 -200 / -200
[2024-09-11 08:06] LABS: Hematocrit 28.3 % (39.0-52.0); Hemoglobin 8.9 g/dL (13.0-18.0); Mean Corp Hgb Conc. 31.4 g/dL (33.0-37.0); Mean Corpuscular Hgb 30.7 pg (27.0-31.0); Mean Corpuscular Volume 97.6 fL (80.0-94.0); Mean Platelet Volume 9.6 fL (7.4-10.4); Platelet Count 203 10^3/uL (130-400); White Blood Cell Count 12.6 10^3/uL (4.8-10.8)
[2024-09-11 08:12] LABS: Blood Urea Nitrogen 25 mg/dl (9-20); Calcium 8.8 mg/dl (8.4-10.2); Carbon Dioxide 24 mmol/L (22-30); Chloride 108 mmol/L (98-107); Estimated Creatinine Clearance > 125 ml/min; Glucose 93 mg/dl (70-99); Magnesium 1.7 mg/dl (1.6-2.3); Phosphorus 3.4 mg/dl (2.5-4.5); Potassium 3.6 mmol/L (3.5-5.1); Sodium 138 mmol/L (135-145); eGFR > 60.00
[2024-09-11 08:59] VITALS: BP 106/69
[2024-09-11] MEDS: FIRVANQ 125 MG TUBE (09:56)
[2024-09-11] MEDS: LOW STRENGTH ASPIRIN 81 MG TUBE (09:56)
[2024-09-11] MEDS: LOVENOX 40 MG SC (09:56)
[2024-09-11] MEDS: NSS (PRESERVATIVE FREE) 10 ML IV (09:57)
[2024-09-11] MEDS: PROTONIX IV 40 MG IV (09:57)
--- NOTE | 2024-09-11 13:44 | PTCARENOTE ---
Addendum entered and electronically signed by Michael Peter MD 09/11/24 15:03:
MD aware
Original Note:
Pt's son at bedside. Updated on current care. Per son's request will ask hospitalist to call him to give him an update.
--- NOTE | 2024-09-11 14:30 | W.PN.ID1 ---
Date of Service
Date of Service: September 11, 2024
Today's Communication
Continue meropenem.
Assessment / Plan
# RUL aspiration pneumonia
# Sepsis with fever, leukocytosis improving
# history of C. difficile
# Recent hx hemorrhagic CVA, prolonged hospital stay
# Dysphagia s/p PEG
# Zosyn/cefepime allergy listed - pt states he tolerated amoxicillin in the past
# SNF resident
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
- MRSA screen negative. DC IV vancomycin.
-Continue meropenem (d2)
-Continue prophylactic po vancomycin 125mg daily while on systemic abx's.
-Follow wbc.
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
Hemorrhagic cerebral CVA
J-tube in place
Dysphagia
History of pulmonary embolism
IVC filter in place requiring prophylactic Lovenox
Hypertension
Recurrent C. difficile infection
Chief Complaint
-: Pneumonia
Subjective / Review of Systems
Cough better.
Vital Signs / Physical Exam
Vital Signs
Vital Signs
Temp Pulse Resp BP Pulse Ox
97.6 F 111 20 106/69 98
09/11/24 08:59 09/11/24 08:59 09/11/24 08:59 09/11/24 08:59 09/11/24 09:15
Physical Exam
Constitutional: No Acute Distress, Comfortable and Chronically Ill
Cardiovascular: Regular Rate and S1/S2
Pulmonary: Clear
Gastrointestinal: Soft, Non Tender and Non Distended
Extremities: Negative Edema
Neurological: Awake and Alert
Objective Data
Lab Data
Lab Results
09/11/24 07:29
09/11/24 07:29
PT 14.8 Sec (11.4-14.6) H 09/10/24 05:06
INR 1.11 09/10/24 05:06
APTT 35.1 Sec (23.4-35.0) H 09/10/24 05:06
Estimated Creat Clear > 125 ml/min 09/11/24 07:29
Lactic Acid 1.8 mmol/L (0.7-2.0) 09/10/24 10:43
Total Bilirubin 0.4 mg/dl (0.2-1.3) 09/10/24 06:38
AST 23 U/L (17-59) 09/10/24 06:38
ALT 40 U/L (0-50) 09/10/24 06:38
Alkaline Phosphatase 64 U/L (38-126) 09/10/24 06:38
Most recent labs reviewed.
Micro Results:
09/09/24 20:53 Blood Culture - Preliminary
Blood/Venous No Growth in 24 hours- Final report to follow
09/09/24 20:33 Blood Culture - Preliminary
Blood/Venous No Growth in 24 hours- Final report to follow
09/10/24 14:00 Nasal Screen MRSA (PCR) - Final
Nose MRSA not detected - performed by PCR methodology.
09/09/24 20:33 Influenza Types A & B (MOISES) - Final
Nasal Swab Negative for Influenza A & B, NAAT
Negative results must be combined with clinical observations
and patient history.
Nucleic Acid Amplification test (NAAT)performed on the
[employer] platform.
09/09/2024 chest x-ray; Probable right upper lobe pneumonia. Recommend imaging follow-up to exclude underlying mass.
09/09/2024 CT head without IV contrast; No convincing acute intracranial abnormality noted. Chronic senescent and postsurgical changes as described.
[2024-09-11 16:53] VITALS: BP 114/80
[2024-09-11] MEDS: LOPRESSOR 12.5 MG TUBE ×2 (17:18→20:55)
--- NOTE | 2024-09-11 17:21 | W.PN.PUL3 ---
Today's Communication / Plan
-
Complete 7 days of antibiotics
As needed nebulizers
Aspiration precautions
Wean off oxygen as able
Sign off
Assessment
-
59-year-old man with past medical history noted, [facility]. Found to have right upper lobe infiltrate on chest x-ray. Hypotensive requiring vasopressors and transferred to the critical care unit.
We were consulted for management 09/10/2024
Pulmonary following 09/11/2024 for pneumonia.
Septic shock-resolved
Aspiration pneumonia
Chest x-ray reviewed, showed right upper lobe opacity suggestive of pneumonia.
Leukocytosis
Altered mental [id number] baseline
CT head without acute abnormality. Postcraniotomy
Conditions present prior admission:
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
J-tube in place
Dysphagia/dysarthria
Hypertension
Pulmonary embolism
C. difficile infection history of
History of pulmonary embolism-IVC filter in place on prophylactic Lovenox-placed at [facility]
Assessment and plan:
From the pulmonary perspective remained stable
On low rate supplemental oxygen-wean off as able
No significant secretions
-
Aspiration pneumonia: Seems to be a recurrent problem for him per records
Strict aspiration precautions
Continue current antibiotics per primary team and complete total 7 days.
Sputum culture if able-He is unable to provide.
Afebrile
Leukocytosis improving seems to be responding to antibiotic.
-
Septic shock: Resolved
-
Nebulizers as needed for secretion clearance. Wean off oxygen as able
Patient does not appear in distress
-
Anemia likely chronic. Follow no evidence for bleeding.
-
J-tube replaced by IR.
-
DVT prophylaxis-Lovenox
-
From the pulmonary perspective no additional recommendation
Complete total 7 days of antibiotics
Continue aspiration precautions
Sign off
Subjective Data
-
Date of Service:
Date of Service: September 11, 2024
Chief Complaint: Pulmonary Follow Up (Aspiration pneumonia)
Subjective:
Patient is nonverbal
Remained stable from the pulmonary perspective overnight
Remains on low rate supplemental oxygen
Review of Systems
General: Other ( unable to obtain)
Objective Data
Data Reviewed
Vital Signs / I&O / Oxygen:
Vital Signs
Temp Pulse Resp BP Pulse Ox
97.6 F 104 20 114/80 96
09/11/24 16:53 09/11/24 16:53 09/11/24 16:53 09/11/24 16:53 09/11/24 16:53
Intake and Output
09/10/24 09/11/24 09/12/24
06:59 06:59 06:59
Intake Total 600 / 600 300 / 300
Output Total 675 / 675 500 / 500
Balance -75 / -75 -200 / -200
SaO2 96
Nasal Cannula flow liters per 2
minute
Physical Exam
General: Comfortable
HEENT: Normocephalic
Cardiovascular: S1-S2
Respiratory: Rhonchi (Mild bilateral)
GI: Soft, Non Distended and Other (GJ tube in place)
Neurology: Awake and Other (Nonverbal at baseline)
Labs/Micro/Reports
Lab Data
09/11/24 07:29
09/11/24 07:29
Microbiology
09/09/24 20:53 Blood/Venous Blood Culture - Preliminary
No Growth in 24 hours- Final report to follow
09/09/24 20:33 Blood/Venous Blood Culture - Preliminary
No Growth in 24 hours- Final report to follow
09/10/24 14:00 Nose Nasal Screen MRSA (PCR) - Final
MRSA not detected - performed by PCR methodology.
09/09/24 20:33 Nasal Swab Influenza Types A & B (MOISES) - Final
Negative for Influenza A & B, NAAT
Negative results must be combined with clinical observations
and patient history.
Nucleic Acid Amplification test (NAAT)performed on the
[employer] platform.
[2024-09-11] MEDS: NSS IV (17:49)
[2024-09-11] MEDS: LIPITOR 80 MG TUBE (20:56)
[2024-09-11 23:38] VITALS: BP 130/82
[2024-09-12 06:00] VITALS: BMI 24.0
[2024-09-12] MEDS: STERILE WATER FOR INJECTION 10 ML IV ×4 (06:01→23:51)
[2024-09-12] MEDS: MERREM 500 MG IV ×4 (06:01→23:51)
[2024-09-12 06:27] LABS: Hematocrit 29.3 % (39.0-52.0); Hemoglobin 9.2 g/dL (13.0-18.0); Mean Corp Hgb Conc. 31.4 g/dL (33.0-37.0); Mean Corpuscular Hgb 30.1 pg (27.0-31.0); Mean Corpuscular Volume 95.8 fL (80.0-94.0); Mean Platelet Volume 9.6 fL (7.4-10.4); Platelet Count 225 10^3/uL (130-400); Red Blood Cell Count 3.06 10^6/uL (4.70-6.10); Red Cell Dist. Width 14.5 % (11.5-14.5); White Blood Cell Count 7.3 10^3/uL (4.8-10.8)
[2024-09-12 07:09] LABS: Blood Urea Nitrogen 23 mg/dl (9-20); Calcium 8.6 mg/dl (8.4-10.2); Carbon Dioxide 26 mmol/L (22-30); Chloride 107 mmol/L (98-107); Estimated Creatinine Clearance > 125 ml/min; Glucose 112 mg/dl (70-99); Magnesium 1.7 mg/dl (1.6-2.3); Phosphorus 3.1 mg/dl (2.5-4.5); Potassium 3.1 mmol/L (3.5-5.1); Sodium 139 mmol/L (135-145); eGFR > 60.00
--- NOTE | 2024-09-12 07:15 | W.PN.HOSP.TC ---
Today's Communication/Plan
-
abx meropenem po vanc as per ID
cont tube feeds
PT/OT
wean O2 supplementation as tolerated
Rate control
Assessment / Plan
Assessment / Plan
Physical Exam
General: No acute distress, appears comfortable at this time
HEENT: normocephalic atraumatic EOMI
Respiratory: Clear to auscultation b/l
Cardiac: S1/S2 sinus tachy
GI: Soft, Non Tender, Non Distended, bowel sounds present, GJ- tube present
Musculoskeletal: No Clubbing, No Cyanosis and No Edema
Neuro: Awake, Alert, RUE weakness, Dysarthria, aphasic
Psych: calm, tearful at times
A/P: Patient is a 59y M with PMH significant for prior hemorrhagic CVA and subsequent debilitation who presents to ED from local [place] for evaluation of fever and SOB.
RUL Pneumonia - Likely Aspiration
Septic Shock secondary to the above
- ICU admit downgraded to med/surg
- Patient presented with fever, tachycardic, tachypnea and leukocytosis with RUL opacity on CXR.
- Treated empirically with IV abx levofloxacin and Flagyl switched to Meropenem and Vancomycin as per ID, IV vanc since completed
-ID eval appreciated
- IVF support.
- Weaned off pressor
- Follow-up culture data.
- Aspiration precautions.
- Hand Marker eval appreciated
History of CDiff Colitis
On broad spectrum abx
CDiff Toxin positive
-PO prophylactic Vancomycin increased to therapeutic dosing Q6H as per ID
s/p Hemorrhagic CVA
Dysarthria / Dysphagia secondary to the above
Ataxia / Ambulatory Dysfunction secondary to the above
- CT appreciated post-operative / post-CVA changes - but no acute intracranial bleeding, etc.
- Neurology eval appreciated
- Aspiration precautions as noted above.
- PT / OT appreciated SNF rehab
- Speech evaluation appreciated
Benign Hypertension
Sinus Tachy
- cont hold home Labetalol with shock low pressures requiring pressor support as above
-will consider restarting if BP elevates
-started low dose metoprolol d/t tachycardia, to be switched to Labetalol if bp significantly elevates.
Concerns for Depression Chronic Illness
Patient intermittently tearful
-Psych Eval requested
History of Pulmonary Embolism
DVT Prophylaxis
- s/p IVC Filter placement in [place] and on prophylactic dose Lovenox.
- Continue Lovenox.
Nutrition
- tube feeds resumed as per dietary recommendations
GJ Tube
-significant discharge/drainage noted
-Tube check concerning for malposition, IR consulted and tube subsequently changed 09/10/24
Code Status: Full
Discussed with patient and patient's son Matry
I spent a total of 50 minutes with the patient or on the floor. More than 50% of this time involved counseling and coordination of care.
Anticipated Discharge: > 48 hours
Subjective/Interval History
-
Date of Service: September 12, 2024
large diarrhea. Otherwise no acute distress.
Objective Data
-
Labs:
Laboratory Results
09/12/24
05:04
WBC 7.3
Hgb 9.2 L
Hct 29.3 L
Plt Count 225
Sodium 139
Potassium 3.1 L
Chloride 107
Carbon Dioxide 26
BUN 23 H
Creatinine 0.6 L
Glucose 112 H
Calcium 8.6
Vital Signs:
Vital Signs
Temp Pulse Resp BP Pulse Ox
98.1 F 94 18 130/82 98
09/11/24 23:38 09/11/24 23:38 09/11/24 23:38 09/11/24 23:38 09/11/24 23:38
I&O
09/11/24 09/12/24 09/13/24
06:59 06:59 06:59
Intake Total 300 / 300 320 / 320
Output Total 500 / 500 1175 / 1175
Balance -200 / -200 -855 / -855
[2024-09-12 07:25] VITALS: BP 141/93
[2024-09-12] MEDS: LOPRESSOR 12.5 MG TUBE ×2 (09:30→19:41)
[2024-09-12] MEDS: LOW STRENGTH ASPIRIN 81 MG TUBE (09:31)
[2024-09-12] MEDS: LOVENOX 40 MG SC (09:31)
[2024-09-12] MEDS: NSS (PRESERVATIVE FREE) 10 ML IV (09:31)
[2024-09-12] MEDS: PROTONIX IV 40 MG IV (09:31)
[2024-09-12] MEDS: FIRVANQ 125 MG TUBE ×3 (09:33→19:41)
[2024-09-12] MEDS: KCL ELIXIR 40 MEQ TUBE (11:46)
--- NOTE | 2024-09-12 12:30 | PTCARENOTE ---
DR Schmitt and Dr Mendez (I&D) both made aware pt stool specimen came back positive for CDIFF
--- NOTE | 2024-09-12 13:31 | W.PN.ID1 ---
Date of Service
Date of Service: September 12, 2024
Today's Communication
See below.
Assessment / Plan
# RUL aspiration pneumonia - improving
# s/p Sepsis with fever, leukocytosis improving
# history of C. difficile
# Recent hx hemorrhagic CVA, prolonged hospital stay
# Dysphagia s/p PEG
# Zosyn/cefepime allergy listed - pt states he tolerated amoxicillin in the past
# SNF resident
- Risk for MDRO due to prolonged hospitalization and resident of [facility] care facility.
- Continue meropenem (d3)
#New onset large liquid stool
- C. diff positive. Unclear if colonization vs recurrence (on prophylactic po vancomycin and normal wbc).
-Norovirus pending
- Change prophylactic PO Vanco to treatment dose 125mg tube q6h pending norovirus result.
-Enhanced precaution.
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
Hemorrhagic cerebral CVA
J-tube in place
Dysphagia
History of pulmonary embolism
IVC filter in place requiring prophylactic Lovenox
Hypertension
Recurrent C. difficile infection
Chief Complaint
-: Pneumonia
Subjective / Review of Systems
More lethargic today.
Cough better.
+ diarrhea today.
Vital Signs / Physical Exam
Vital Signs
Vital Signs
Temp Pulse Resp BP Pulse Ox
98.0 F 101 20 141/93 96
09/12/24 07:25 09/12/24 07:25 09/12/24 07:25 09/12/24 07:25 09/12/24 07:25
Physical Exam
Constitutional: Chronically Ill
Pulmonary: Clear
Gastrointestinal: Soft, Non Tender and Non Distended
Neurological: Other (more lethargic)
Objective Data
Lab Data
Lab Results
09/12/24 05:04
09/12/24 05:04
PT 14.8 Sec (11.4-14.6) H 09/10/24 05:06
INR 1.11 09/10/24 05:06
APTT 35.1 Sec (23.4-35.0) H 09/10/24 05:06
Estimated Creat Clear > 125 ml/min 09/12/24 05:04
Lactic Acid 1.8 mmol/L (0.7-2.0) 09/10/24 10:43
Total Bilirubin 0.4 mg/dl (0.2-1.3) 09/10/24 06:38
AST 23 U/L (17-59) 09/10/24 06:38
ALT 40 U/L (0-50) 09/10/24 06:38
Alkaline Phosphatase 64 U/L (38-126) 09/10/24 06:38
Most recent labs reviewed.
Micro Results:
09/12/24 11:01 C. difficile GDH Antigen & Toxins - Final
Feces/Stool Toxigenic C.difficile Positive
09/12/24 11:01 Norovirus - Pending
Feces/Stool
09/09/24 20:53 Blood Culture - Preliminary
Blood/Venous No Growth in 48 hours- Final report to follow
09/09/24 20:33 Blood Culture - Preliminary
Blood/Venous No Growth in 48 hours- Final report to follow
09/10/24 14:00 Nasal Screen MRSA (PCR) - Final
Nose MRSA not detected - performed by PCR methodology.
09/09/24 20:33 Influenza Types A & B (MOISES) - Final
Nasal Swab Negative for Influenza A & B, NAAT
Negative results must be combined with clinical observations
and patient history.
Nucleic Acid Amplification test (NAAT)performed on the
Seen platform.
09/09/2024 chest x-ray; Probable right upper lobe pneumonia. Recommend imaging follow-up to exclude underlying mass.
09/09/2024 CT head without IV contrast; No convincing acute intracranial abnormality noted. Chronic senescent and postsurgical changes as described.
Care Review
Plan reviewed with: Nurse (Taty) and Physician (Dr. Peter)
[2024-09-12 15:31] VITALS: BP 124/76
[2024-09-12] MEDS: LIPITOR 80 MG TUBE (21:28)
[2024-09-12 23:30] VITALS: BP 157/107
[2024-09-13] MEDS: FIRVANQ 125 MG TUBE ×4 (02:06→21:25)
[2024-09-13 06:00] VITALS: BMI 24.2
[2024-09-13] MEDS: STERILE WATER FOR INJECTION 10 ML IV ×4 (06:11→23:52)
[2024-09-13] MEDS: MERREM 500 MG IV ×4 (06:11→23:52)
[2024-09-13 08:00] VITALS: BP 140/89
[2024-09-13] MEDS: LOVENOX 40 MG SC (08:58)
[2024-09-13] MEDS: LOW STRENGTH ASPIRIN 81 MG TUBE (08:58)
[2024-09-13] MEDS: NSS (PRESERVATIVE FREE) 10 ML IV (08:59)
[2024-09-13] MEDS: LOPRESSOR 12.5 MG TUBE ×2 (08:59→21:26)
[2024-09-13] MEDS: PROTONIX IV 40 MG IV (09:00)
[2024-09-13 10:05] LABS: Hematocrit 29.7 % (39.0-52.0); Hemoglobin 9.6 g/dL (13.0-18.0); Mean Corp Hgb Conc. 32.3 g/dL (33.0-37.0); Mean Corpuscular Volume 95.8 fL (80.0-94.0); Mean Platelet Volume 9.4 fL (7.4-10.4); Platelet Count 244 10^3/uL (130-400); Red Cell Dist. Width 14.6 % (11.5-14.5); White Blood Cell Count 6.9 10^3/uL (4.8-10.8)
--- NOTE | 2024-09-13 10:10 | W.PN.HOSP.TC ---
Today's Communication/Plan
-
see bold
Assessment / Plan
Assessment / Plan
A/P: Patient is a 59y M with PMH significant for prior hemorrhagic CVA and subsequent debilitation who presents to ED from local [place] for evaluation of fever and SOB.
RUL Pneumonia - Likely Aspiration
Septic Shock secondary to the above
- ICU admit downgraded to med/surg
- Patient presented with fever, tachycardic, tachypnea and leukocytosis with RUL opacity on CXR.
- Treated empirically with IV abx levofloxacin and Flagyl switched to Meropenem and Vancomycin as per ID, IV vanc since completed
- Appreciate ID input, continue Merrem day 4 out of 5 for pneumonia
History of CDiff Colitis
On broad spectrum abx
CDiff Toxin positive
- Continue oral Vancomycin 125mg po qid through 09/25/24 as per ID
then Vancomycin 125 mg po tid x 7 days
then Vancomycin 125 mg po bid x 7 days
then Vancomycin 125 mg po qd x 7 days
then Vancomycin 125 mg po qod x 7 days
S/p Hemorrhagic CVA
Dysarthria / Dysphagia secondary to the above
Ataxia / Ambulatory Dysfunction secondary to the above
- CT appreciated post-operative / post-CVA changes - but no acute intracranial bleeding, etc.
- Neurology eval appreciated
- Aspiration precautions as noted above.
- PT / OT appreciated SNF rehab
- Speech evaluation appreciated
Benign Hypertension
Sinus Tachy
-cont hold home Labetalol
-started low dose metoprolol d/t tachycardia, to be switched to Labetalol if bp significantly elevates.
Concerns for Depression Chronic Illness
Patient intermittently tearful
-Psychiatry following, consider SSRI
History of Pulmonary Embolism
DVT Prophylaxis
- S/p IVC Filter placement in [place] and on prophylactic dose Lovenox.
- Continue Lovenox.
Nutrition
- tube feeds resumed as per dietary recommendations
GJ Tube
-Significant discharge/drainage noted
-Tube check concerning for malposition, IR consulted and tube subsequently changed 09/10/24
DVT prophylaxis�subcu Lovenox
Code Status - Full
Total time spent to see the patient on the floor, examine the patient, review data and lab results, discuss treatment plan with patient, nursing staff around 51 minutes.
Physical Exam
General: Appears debilitated, but in no acute distress
HEENT: normocephalic atraumatic EOMI
Respiratory: Clear to auscultation b/l
Cardiac: S1/S2 sinus tachy
GI: Soft, Non Tender, Non Distended, bowel sounds present, GJ- tube present
Musculoskeletal: No Clubbing, No Cyanosis and No Edema
Neuro: Awake, Alert, RUE weakness, Dysarthria, aphasic
Psych: Calm, tearful at times
Anticipated Discharge: 24 - 48 hours
Subjective/Interval History
-
Date of Service: September 13, 2024
Patient not answering questions, not following commands. Nursing staff reports he had 1 loose stool. No fever, no vomiting.
Objective Data
-
Labs:
Laboratory Results
09/13/24
09:41
WBC 6.9
Hgb 9.6 L
Hct 29.7 L
Plt Count 244
Sodium Pending
Potassium Pending
Chloride Pending
Carbon Dioxide Pending
BUN Pending
Creatinine Pending
Glucose Pending
Calcium Pending
Vital Signs:
Vital Signs
Temp Pulse Resp BP Pulse Ox
97.7 F 99 16 140/89 99
09/13/24 08:00 09/13/24 08:00 09/13/24 08:00 09/13/24 08:00 09/13/24 08:00
I&O
12/15/24 12/16/24 12/17/24
06:59 06:59 06:59
Intake Total 320 / 320 940 / 940
Output Total 1175 / 1175 800 / 800
Balance -855 / -855 140 / 140
[2024-09-13 10:34] LABS: Blood Urea Nitrogen 20 mg/dl (9-20); Calcium 8.3 mg/dl (8.4-10.2); Carbon Dioxide 30 mmol/L (22-30); Chloride 106 mmol/L (98-107); Estimated Creatinine Clearance > 125 ml/min; Glucose 108 mg/dl (70-99); Magnesium 1.6 mg/dl (1.6-2.3); Phosphorus 3.2 mg/dl (2.5-4.5); Potassium 3.8 mmol/L (3.5-5.1); Sodium 140 mmol/L (135-145); eGFR > 60.00
--- NOTE | 2024-09-13 12:47 | CS.PSYCHR ---
Consult Summary - Psychiatry
-
Pt is a 59 yo male with PMH significant for hemorrhagic CVA May 2024, who presented to ED for evaluation of fever and SOB noted at the nursing facility. Per record, pt's son noticed increased work of breathing, less interactive, increased
difficulty with speech over the previous week. Pt has significant residual impairments post-stroke, with ataxia, L facial droop, dysarthria, dysphagia, unable to ambulate. Pt is NPO due to aspiration; gets meds and nutrition through J-tube.
Psychiatry asked to evaluate for depression due to reported intermittent tearfulness. Upon approach, pt lying in bed, with head turned to the left. Pt gave very limited, basically 'no' responses to questions, denied being depressed. He made a
sound to dejection/discouragement, did not turn to make eye contact.
PMH: Craniotomy for hemorrhagic stroke in [place], extended stay complicated by pneumonia, aspiration, C Diff infection and pulmonary embolism. Pt was discharged to rehab in [facility] to be closer to his son.
Psych Hx: none noted
MSE: initially asleep, woke with verbal stimulus. Not making eye contact, head turned to left. No agitation, no signs of psychosis. Very limited interview, limited verbal responses, stated 'no' when asked if he is depressed.
Imp: Adjustment d/o, R/o depressive d/o- post-stroke, situational with loss of functioning
Rec: Consider antidepressant; need to be able to discuss further with pt and family
will follow
--- NOTE | 2024-09-13 13:37 | W.PN.ID1 ---
Date of Service
Date of Service: September 13, 2024
Today's Communication
See below.
Assessment / Plan
# RUL aspiration pneumonia - improving
# s/p Sepsis with fever, leukocytosis resolved
# history of C. difficile
# Recent hx hemorrhagic CVA, prolonged hospital stay
# Dysphagia s/p PEG
# Zosyn/cefepime allergy listed - pt states he tolerated amoxicillin in the past
# SNF resident
- Continue meropenem (d4 of 5) for PNA
- Recurrent C. diff: diarrhea last night
Continue Vancomycin 125mg po qid through 09/25/24
then Vancomycin 125 mg po tid x 7 days
then Vancomycin 125 mg po bid x 7 days
then Vancomycin 125 mg po qd x 7 days
then Vancomycin 125 mg po qod x 7 days
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
Hemorrhagic cerebral CVA
J-tube in place
Dysphagia
History of pulmonary embolism
IVC filter in place requiring prophylactic Lovenox
Hypertension
Recurrent C. difficile infection
Chief Complaint
-: Pneumonia
Vital Signs / Physical Exam
Vital Signs
Vital Signs
Temp Pulse Resp BP Pulse Ox
97.7 F 99 16 140/89 99
09/13/24 08:00 09/13/24 08:00 09/13/24 08:00 09/13/24 08:00 09/13/24 08:00
Physical Exam
Constitutional: Comfortable and Chronically Ill
Pulmonary: Clear (anteriorly)
Gastrointestinal: Soft, Non Tender, Non Distended and Normal Bowel Sounds
Extremities: Negative Edema
Neurological: Awake
Objective Data
Lab Data
Lab Results
09/13/24 09:41
09/13/24 09:41
PT 14.8 Sec (11.4-14.6) H 09/10/24 05:06
INR 1.11 09/10/24 05:06
APTT 35.1 Sec (23.4-35.0) H 09/10/24 05:06
Estimated Creat Clear > 125 ml/min 09/13/24 09:41
Lactic Acid 1.8 mmol/L (0.7-2.0) 09/10/24 10:43
Total Bilirubin 0.4 mg/dl (0.2-1.3) 09/10/24 06:38
AST 23 U/L (17-59) 09/10/24 06:38
ALT 40 U/L (0-50) 09/10/24 06:38
Alkaline Phosphatase 64 U/L (38-126) 09/10/24 06:38
Most recent labs reviewed.
Micro Results:
09/09/24 20:53 Blood Culture - Preliminary
Blood/Venous No Growth in 72 hours- Final report to follow
09/09/24 20:33 Blood Culture - Preliminary
Blood/Venous No Growth in 72 hours- Final report to follow
09/12/24 11:01 - Final
Feces/Stool
09/12/24 11:01 C. difficile GDH Antigen & Toxins - Final
Feces/Stool Toxigenic C.difficile Positive
09/10/24 14:00 Nasal Screen MRSA (PCR) - Final
Nose MRSA not detected - performed by PCR methodology.
09/09/24 20:33 Influenza Types A & B (MOISES) - Final
Nasal Swab Negative for Influenza A & B, NAAT
Negative results must be combined with clinical observations
and patient history.
Nucleic Acid Amplification test (NAAT)performed on the
[employer] network platform.
09/09/2024 chest x-ray; Probable right upper lobe pneumonia. Recommend imaging follow-up to exclude underlying mass.
09/09/2024 CT head without IV contrast; No convincing acute intracranial abnormality noted. Chronic senescent and postsurgical changes as described.
[2024-09-13 16:00] VITALS: BP 146/92
--- NOTE | 2024-09-13 16:22 | CM ---
CM reviewed chart, spoke with patients son, Marty. Per Marty, patient was at [facility] for about four weeks, son is interested in exploring other facilities including [facility], facilities near [facility]. Referrals
will be placed in [facility]. Psych following. CM will continue to follow for all discharge planning needs.
Plan; SNF, will need auth, when medically stable, son would like to be updated.
[2024-09-13] MEDS: LIPITOR 80 MG TUBE (21:25)
[2024-09-13] MEDS: FLUSH (NSS) 3 FLUSH IV (21:29)
[2024-09-13 23:30] VITALS: BP 151/104
[2024-09-13] MEDS: FLUSH (NSS) 2 FLUSH IV (23:53)
[2024-09-14] MEDS: FIRVANQ 125 MG TUBE ×4 (02:35→20:01)
[2024-09-14 03:11] VITALS: BP 132/96
[2024-09-14] MEDS: MERREM 500 MG IV ×4 (05:38→23:22)
[2024-09-14] MEDS: STERILE WATER FOR INJECTION 10 ML IV ×4 (05:38→23:23)
[2024-09-14] MEDS: FLUSH (NSS) 2 FLUSH IV (05:39)
[2024-09-14 05:53] VITALS: BMI 23.9
[2024-09-14] MEDS: FLUSH (NSS) 1 FLUSH IV ×3 (05:57→18:06)
[2024-09-14 07:00] VITALS: BP 128/87
[2024-09-14 08:09] LABS: Hematocrit 31.2 % (39.0-52.0); Hemoglobin 10.1 g/dL (13.0-18.0); Mean Corp Hgb Conc. 32.4 g/dL (33.0-37.0); Mean Corpuscular Hgb 30.5 pg (27.0-31.0); Mean Corpuscular Volume 94.3 fL (80.0-94.0); Mean Platelet Volume 9.4 fL (7.4-10.4); Platelet Count 259 10^3/uL (130-400); Red Blood Cell Count 3.31 10^6/uL (4.70-6.10); Red Cell Dist. Width 14.4 % (11.5-14.5); White Blood Cell Count 9.8 10^3/uL (4.8-10.8)
[2024-09-14 08:56] LABS: Blood Urea Nitrogen 17 mg/dl (9-20); Calcium 8.5 mg/dl (8.4-10.2); Carbon Dioxide 28 mmol/L (22-30); Chloride 102 mmol/L (98-107); Estimated Creatinine Clearance > 125 ml/min; Glucose 114 mg/dl (70-99); Magnesium 1.5 mg/dl (1.6-2.3); Sodium 139 mmol/L (135-145); eGFR > 60.00
--- NOTE | 2024-09-14 09:06 | W.PN.HOSP.TC ---
Today's Communication/Plan
-
Finish Merrem
Continue oral Vanco
Discharge back to nursing facility tomorrow
Assessment / Plan
Assessment / Plan
A/P: Patient is a 59y M with PMH significant for prior hemorrhagic CVA and subsequent debilitation who presents to ED from local [place] for evaluation of fever and SOB.
RUL Pneumonia - Likely Aspiration
Septic Shock secondary to the above
- ICU admit downgraded to med/surg
- Patient presented with fever, tachycardic, tachypnea and leukocytosis with RUL opacity on CXR.
- Treated empirically with IV abx levofloxacin and Flagyl switched to Meropenem and Vancomycin as per ID, IV vanc since completed
- Appreciate ID input, continue Merrem day 5 out of 5 for pneumonia
History of CDiff Colitis
On broad spectrum abx
CDiff Toxin positive
Continue oral Vancomycin taper: 125mg po qid through 09/25/24,
then Vancomycin 125 mg po tid x 7 days
then Vancomycin 125 mg po bid x 7 days
then Vancomycin 125 mg po qd x 7 days
then Vancomycin 125 mg po qod x 7 days
S/p Hemorrhagic CVA
Dysarthria / Dysphagia secondary to the above
Ataxia / Ambulatory Dysfunction secondary to the above
- CT appreciated post-operative / post-CVA changes - but no acute intracranial bleeding, etc.
- Neurology eval appreciated
- Aspiration precautions as noted above.
- PT / OT appreciated SNF rehab
- Speech evaluation appreciated
Benign Hypertension
Sinus Tachy
-hold home Labetalol
-started low dose metoprolol d/t tachycardia, to be switched to Labetalol if bp significantly elevates.
Concerns for Depression Chronic Illness
Patient intermittently tearful
-Psychiatry following, consider SSRI
History of Pulmonary Embolism
DVT Prophylaxis
- S/p IVC Filter placement in [place] and on prophylactic dose Lovenox.
- Continue Lovenox.
Nutrition
- tube feeds resumed as per dietary recommendations
GJ Tube
-Significant discharge/drainage noted
-Tube check concerning for malposition, IR consulted and tube subsequently changed 09/10/24
DVT prophylaxis�subcu Lovenox
Code Status - Full
Total time spent to see the patient on the floor, examine the patient, review data and lab results, discuss treatment plan with patient, nursing staff around 41 minutes.
Physical Exam
General: Appears debilitated, but in no acute distress
HEENT: normocephalic atraumatic EOMI
Respiratory: Clear to auscultation b/l
Cardiac: S1/S2 sinus tachy
GI: Soft, Non Tender, Non Distended, bowel sounds present, GJ- tube present
Musculoskeletal: No Clubbing, No Cyanosis
Bilateral lower extremity edema noted
Neuro: Awake, Alert, RUE weakness, Dysarthria, aphasic
Psych: Calm, tearful at times
Anticipated Discharge: Within 24 hours
Subjective/Interval History
-
Date of Service: September 13, 2024
No acute events overnight. Patient is tolerating his tube feeds. No fever, no vomiting.
Objective Data
-
Labs:
Laboratory Results
09/13/24
09:41
WBC 6.9
Hgb 9.6 L
Hct 29.7 L
Plt Count 244
Sodium 140
Potassium 3.8
Chloride 106
Carbon Dioxide 30
BUN 20
Creatinine 0.6 L
Glucose 108 H
Calcium 8.3 L
Vital Signs:
Vital Signs
Temp Pulse Resp BP Pulse Ox
98.7 F 80 18 146/92 98
09/13/24 16:00 09/13/24 16:00 09/13/24 16:00 09/13/24 16:00 09/13/24 16:00
I&O
09/12/24 09/13/24 09/14/24
06:59 06:59 06:59
Intake Total 320 / 320 940 / 940
Output Total 1175 / 1175 800 / 800
Balance -855 / -855 140 / 140
[2024-09-14 10:22] VITALS: BP 135/72
[2024-09-14] MEDS: LOPRESSOR 12.5 MG TUBE ×2 (10:58→20:00)
[2024-09-14] MEDS: NSS (PRESERVATIVE FREE) 10 ML IV (10:59)
[2024-09-14] MEDS: PROTONIX IV 40 MG IV (11:00)
[2024-09-14] MEDS: LOW STRENGTH ASPIRIN 81 MG TUBE (11:01)
[2024-09-14] MEDS: LOVENOX 40 MG SC (11:03)
--- NOTE | 2024-09-14 12:48 | W.PN.ID1 ---
Date of Service
Date of Service: September 14, 2024
Today's Communication
Completing 5 days of meropenem.
Continue po vanco taper.
Assessment / Plan
# RUL aspiration pneumonia - resolving
# s/p Sepsis with fever, leukocytosis resolved
# history of C. difficile
# Recent hx hemorrhagic CVA, prolonged hospital stay
# Dysphagia s/p PEG
# Zosyn/cefepime allergy listed - pt states he tolerated amoxicillin in the past
# SNF resident
- Continue meropenem (d5 of 5) for PNA
- Recurrent C. diff: diarrhea resolved
Continue Vancomycin 125mg po qid through 09/25/24
then Vancomycin 125 mg po tid x 7 days
then Vancomycin 125 mg po bid x 7 days
then Vancomycin 125 mg po qd x 7 days
then Vancomycin 125 mg po qod x 7 days
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
Hemorrhagic cerebral CVA
J-tube in place
Dysphagia
History of pulmonary embolism
IVC filter in place requiring prophylactic Lovenox
Hypertension
Recurrent C. difficile infection
Chief Complaint
-: Pneumonia
Vital Signs / Physical Exam
Vital Signs
Vital Signs
Temp Pulse Resp BP Pulse Ox
98.5 F 110 16 128/87 98
09/14/24 07:00 09/14/24 07:00 09/14/24 07:00 09/14/24 07:00 09/14/24 07:00
Physical Exam
Constitutional: Chronically Ill
Pulmonary: Clear (anteriorly)
Gastrointestinal: Soft, Non Tender, Non Distended and Normal Bowel Sounds
Extremities: Negative Edema
Neurological: Awake
Objective Data
Lab Data
Lab Results
09/14/24 07:41
09/14/24 07:41
PT 14.8 Sec (11.4-14.6) H 09/10/24 05:06
INR 1.11 09/10/24 05:06
APTT 35.1 Sec (23.4-35.0) H 09/10/24 05:06
Estimated Creat Clear > 125 ml/min 09/14/24 07:41
Lactic Acid 1.8 mmol/L (0.7-2.0) 09/10/24 10:43
Total Bilirubin 0.4 mg/dl (0.2-1.3) 09/10/24 06:38
AST 23 U/L (17-59) 09/10/24 06:38
ALT 40 U/L (0-50) 09/10/24 06:38
Alkaline Phosphatase 64 U/L (38-126) 09/10/24 06:38
Most recent labs reviewed.
Micro Results:
09/09/24 20:53 Blood Culture - Preliminary
Blood/Venous No Growth in 4 days- Final report to follow
09/09/24 20:33 Blood Culture - Preliminary
Blood/Venous No Growth in 4 days- Final report to follow
09/12/24 11:01 - Final
Feces/Stool
09/12/24 11:01 C. difficile GDH Antigen & Toxins - Final
Feces/Stool Toxigenic C.difficile Positive
09/10/24 14:00 Nasal Screen MRSA (PCR) - Final
Nose MRSA not detected - performed by PCR methodology.
09/09/24 20:33 Influenza Types A & B (MOISES) - Final
Nasal Swab Negative for Influenza A & B, NAAT
Negative results must be combined with clinical observations
and patient history.
Nucleic Acid Amplification test (NAAT)performed on the
[employer] platform.
09/09/2024 chest x-ray; Probable right upper lobe pneumonia. Recommend imaging follow-up to exclude underlying mass.
09/09/2024 CT head without IV contrast; No convincing acute intracranial abnormality noted. Chronic senescent and postsurgical changes as described.
--- NOTE | 2024-09-14 13:08 | CM ---
CM reviewed chart, patient seen bedside. LIBERTY spoke with son Marty, will send additional referrals to facilities in [facility] to accept- Manas Huff will review. Marty reports he is POA for patient. Per Marty, would like to
see how patient does at rehab, but aware patient will likely need LTC. Marty confirms patient was residing in [place], was admitted to [facility], then transferred to [facility] SNF. CM discussed facilities will likely want to see financial
applications if patient is transitioning to LTC, son aware. Patient will need insurance auth once facility found. LIBERTY received call from Rachana with [facility] regarding discharge planning assistance- [phone] ext [phone]. CM will continue to
follow for all discharge planning needs.
Plan; SNF pending accepting facility, will need insurance auth.
[2024-09-14 15:00] VITALS: BP 141/92
[2024-09-14] MEDS: MAGNESIUM SULFATE 50 IV (16:01)
[2024-09-14] MEDS: LIPITOR 80 MG TUBE (20:01)
[2024-09-14 23:25] VITALS: BP 135/88
[2024-09-15] VITALS (7 sets, daily range): BP systolic 137–184; BP diastolic 90–117; PULSE 86; O2SAT 99; BMI 23.8
[2024-09-15] MEDS: FIRVANQ 125 MG TUBE ×4 (02:42→20:10)
[2024-09-15] MEDS: MERREM 500 MG IV ×3 (05:46→17:52)
[2024-09-15] MEDS: STERILE WATER FOR INJECTION 10 ML IV ×3 (05:46→17:52)
[2024-09-15 08:23] LABS: Hematocrit 31.6 % (39.0-52.0); Hemoglobin 10.5 g/dL (13.0-18.0); Mean Corp Hgb Conc. 33.2 g/dL (33.0-37.0); Mean Corpuscular Hgb 30.9 pg (27.0-31.0); Mean Corpuscular Volume 92.9 fL (80.0-94.0); Mean Platelet Volume 9.2 fL (7.4-10.4); Platelet Count 260 10^3/uL (130-400); Red Cell Dist. Width 14.6 % (11.5-14.5); White Blood Cell Count 10.4 10^3/uL (4.8-10.8)
[2024-09-15 08:42] LABS: Blood Urea Nitrogen 17 mg/dl (9-20); Calcium 8.7 mg/dl (8.4-10.2); Carbon Dioxide 33 mmol/L (22-30); Chloride 99 mmol/L (98-107); Estimated Creatinine Clearance > 125 ml/min; Glucose 117 mg/dl (70-99); Magnesium 1.9 mg/dl (1.6-2.3); Potassium 4.2 mmol/L (3.5-5.1); Sodium 138 mmol/L (135-145); eGFR > 60.00
--- NOTE | 2024-09-15 09:06 | W.PN.HOSP.TC ---
Addendum entered and electronically signed by Reji Kimball MD 09/15/24 17:36:
Discussed with psychiatry, patient's QTc is prolonged. Will change Lexapro to Zoloft, since it does not prolong QTc.
Original Note:
Today's Communication/Plan
-
Discharge to short-term rehab when insurance authorization has been obtained
Assessment / Plan
Assessment / Plan
A/P: Patient is a 59y M with PMH significant for prior hemorrhagic CVA and subsequent debilitation who presents to ED from local [place] for evaluation of fever and SOB.
RUL Pneumonia - Likely Aspiration
Septic Shock secondary to the above
- ICU admit downgraded to med/surg
- Patient presented with fever, tachycardic, tachypnea and leukocytosis with RUL opacity on CXR.
- Treated empirically with IV abx levofloxacin and Flagyl switched to Meropenem and Vancomycin as per ID, IV vanc since completed
- Appreciate ID input, s/p Merrem x 5 days for pneumonia
History of CDiff Colitis
On broad spectrum abx
CDiff Toxin positive
Continue oral Vancomycin taper: 125mg po qid through 09/25/24,
then Vancomycin 125 mg po tid x 7 days
then Vancomycin 125 mg po bid x 7 days
then Vancomycin 125 mg po qd x 7 days
then Vancomycin 125 mg po qod x 7 days
S/p Hemorrhagic CVA
Dysarthria / Dysphagia secondary to the above
Ataxia / Ambulatory Dysfunction secondary to the above
- CT appreciated post-operative / post-CVA changes - but no acute intracranial bleeding, etc.
- Neurology eval appreciated
- Aspiration precautions as noted above.
- PT / OT appreciated SNF rehab
- Speech evaluation appreciated
Benign Hypertension
Sinus Tachy
-Resume home labetalol 100 mg every 8 hours as blood pressure is elevated
Concerns for Depression Chronic Illness
Patient intermittently tearful
-Psychiatry following, start Lexapro 15 mg daily
-Monitor QTc
History of Pulmonary Embolism
DVT Prophylaxis
- S/p IVC Filter placement in [place] and on prophylactic dose Lovenox.
- Continue Lovenox.
Nutrition
- tube feeds resumed as per dietary recommendations
GJ Tube
-Significant discharge/drainage noted
-Tube check concerning for malposition, IR consulted and tube subsequently changed 09/10/24
DVT prophylaxis�subcu Lovenox
Code Status - DNR confirmed by son/POA
Updated son 09/15
Total time spent to see the patient on the floor, examine the patient, review data and lab results, discuss treatment plan with patient, nursing staff around 51 minutes.
Physical Exam
General: Appears debilitated, but in no acute distress
HEENT: normocephalic atraumatic EOMI
Respiratory: Clear to auscultation b/l
Cardiac: S1/S2 sinus tachy
GI: Soft, Non Tender, Non Distended, bowel sounds present, GJ- tube present
Musculoskeletal: No Clubbing, No Cyanosis
Bilateral lower extremity edema noted
Neuro: Awake, Alert, RUE weakness, Dysarthria, aphasic
Psych: Calm, tearful at times
Anticipated Discharge: Within 24 hours
Subjective/Interval History
-
Date of Service: September 15, 2024
No acute events. No fever, no vomiting. He is tolerating his tube feeds.
Objective Data
-
Labs:
Laboratory Results
09/15/24
08:08
WBC 10.4
Hgb 10.5 L
Hct 31.6 L
Plt Count 260
Sodium 138
Potassium 4.2
Chloride 99
Carbon Dioxide 33 H
BUN 17
Creatinine 0.6 L
Glucose 117 H
Calcium 8.7
Vital Signs:
Vital Signs
Temp Pulse Resp BP Pulse Ox
98.8 F 93 16 135/88 99
09/14/24 23:25 09/14/24 23:25 09/14/24 23:25 09/14/24 23:25 09/14/24 23:25
I&O
09/14/24 09/15/24 09/16/24
06:59 06:59 06:59
Intake Total 1240 / 1240 1322.5 / 1322.5
Output Total 1460 / 1460 1225 / 1225
Balance -220 / -220 97.5 / 97.5
[2024-09-15] MEDS: LOVENOX 40 MG SC (10:09)
[2024-09-15] MEDS: LOPRESSOR 12.5 MG TUBE (10:10)
[2024-09-15] MEDS: PROTONIX IV 40 MG IV (10:10)
[2024-09-15] MEDS: LOW STRENGTH ASPIRIN 81 MG TUBE (10:10)
[2024-09-15] MEDS: NSS (PRESERVATIVE FREE) 10 ML IV (10:11)
[2024-09-15] MEDS: TRANDATE 100 MG TUBE ×2 (12:51→20:09)
[2024-09-15] MEDS: LEXAPRO 15 MG TUBE (12:51)
--- NOTE | 2024-09-15 13:16 | CM ---
CM reviewed chart, spoke with sonMarty to discuss accepting facilities ([facility]). [facility] would require a LTC financial application prior to SNF acceptance, do accept Medicaid but have limited spots. Son interested in exploring
additional sister facilities of [facility], discussed with liaison, can explore transition to another facility once at [facility], son agreeable for patient to return to [facility]. LIBERTY spoke with videotape sales representative from [facility]- P: [phone], clinicals faxed to [phone], case# [id number]. CM will continue to follow for all discharge planning needs.
Plan; [facility] SNF, awaiting auth, OOH DNR placed on chart, ambulance forms placed on chart.
--- NOTE | 2024-09-15 13:17 | W.PN.ID1 ---
Date of Service
Date of Service: September 15, 2024
Today's Communication
Last day of meropenem.
Continue po vanco taper.
Assessment / Plan
# RUL aspiration pneumonia - resolving
# s/p Sepsis with fever, leukocytosis resolved
# history of C. difficile
# Recent hx hemorrhagic CVA, prolonged hospital stay
# Dysphagia s/p PEG
# Zosyn/cefepime allergy listed - pt states he tolerated amoxicillin in the past
# SNF resident
- Last day of meropenem (d5 of 5) for PNA
- Recurrent C. diff: diarrhea resolved
Continue Vancomycin 125mg po qid through 09/25/24
then Vancomycin 125 mg po tid x 7 days
then Vancomycin 125 mg po bid x 7 days
then Vancomycin 125 mg po qd x 7 days
then Vancomycin 125 mg po qod x 7 days
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
Hemorrhagic cerebral CVA
J-tube in place
Dysphagia
History of pulmonary embolism
IVC filter in place requiring prophylactic Lovenox
Hypertension
Recurrent C. difficile infection
Chief Complaint
-: Pneumonia
Vital Signs / Physical Exam
Vital Signs
Vital Signs
Temp Pulse Resp BP Pulse Ox
96.4 F L 102 22 140/100 95
09/15/24 07:00 09/15/24 07:00 09/15/24 07:00 09/15/24 09:45 09/15/24 11:00
Physical Exam
Constitutional: Chronically Ill
Pulmonary: Clear
Gastrointestinal: Soft, Non Tender, Non Distended and Normal Bowel Sounds
Extremities: Negative Edema
Objective Data
Lab Data
Lab Results
09/15/24 08:08
09/15/24 08:08
PT 14.8 Sec (11.4-14.6) H 09/10/24 05:06
INR 1.11 09/10/24 05:06
APTT 35.1 Sec (23.4-35.0) H 09/10/24 05:06
Estimated Creat Clear > 125 ml/min 09/15/24 08:08
Lactic Acid 1.8 mmol/L (0.7-2.0) 09/10/24 10:43
Total Bilirubin 0.4 mg/dl (0.2-1.3) 09/10/24 06:38
AST 23 U/L (17-59) 09/10/24 06:38
ALT 40 U/L (0-50) 09/10/24 06:38
Alkaline Phosphatase 64 U/L (38-126) 09/10/24 06:38
Most recent labs reviewed.
Micro Results:
09/09/24 20:53 Blood Culture - Final
Blood/Venous No Growth - Final Report
09/09/24 20:33 Blood Culture - Final
Blood/Venous No Growth - Final Report
09/12/24 11:01 - Final
Feces/Stool
09/12/24 11:01 C. difficile GDH Antigen & Toxins - Final
Feces/Stool Toxigenic C.difficile Positive
09/10/24 14:00 Nasal Screen MRSA (PCR) - Final
Nose MRSA not detected - performed by PCR methodology.
09/09/24 20:33 Influenza Types A & B (MOISES) - Final
Nasal Swab Negative for Influenza A & B, NAAT
Negative results must be combined with clinical observations
and patient history.
Nucleic Acid Amplification test (NAAT)performed on the
[employer] platform.
09/09/2024 chest x-ray; Probable right upper lobe pneumonia. Recommend imaging follow-up to exclude underlying mass.
09/09/2024 CT head without IV contrast; No convincing acute intracranial abnormality noted. Chronic senescent and postsurgical changes as described.
--- NOTE | 2024-09-15 13:33 | W.PN.UPDATE ---
Update Note
Progress Note Update
patient seen chart reviewed. spoke with nursing. sent text to dr maria. the patient has hx of hemorrhagic stroke in may. he has been residing at [facility]. he comes to when son noted fever sob. he was found to be septic w
aspiration pneumonia. he also was suffering from d diff. the patient has a gj tube since cva in the fall and has had episodes of aspiration pneumonia. . consult to psych re ? depression and he was seen by dr venegas yesterday. noted lexapro 15 mg
restarted today which he had been taking as an out pt. i was unable to engage with him. while he was awake, he did not answer any of the questions i asked him even when i suggested he just nod if yes or shake his head re no. nursing informed me
that he is returning to [facility] later today. he did appear depressed to me today and i do think it is worth a try to use antidepressants. if he has been on lexapro for any length of time would consider an alternative to that antidepressant
especially since the qtc is already 495 and there is some evidence that lexapro could further prolong qtc so i would not increase it to 20 mg. there are other alternatives which do not prolong qtc eg remeron effexor zoloft etc.
[2024-09-15] MEDS: TYLENOL 650 MG TUBE (14:26)
[2024-09-15] MEDS: LIPITOR 80 MG TUBE (21:56)
[2024-09-16] MEDS: STERILE WATER FOR INJECTION 10 ML IV ×2 (01:28→05:23)
[2024-09-16] MEDS: MERREM 500 MG IV ×2 (01:28→05:23)
[2024-09-16] MEDS: FIRVANQ 125 MG TUBE ×4 (01:28→20:05)
[2024-09-16] MEDS: TRANDATE 100 MG TUBE ×3 (05:23→20:05)
[2024-09-16 06:00] VITALS: BMI 23.5
[2024-09-16 08:10] VITALS: BP 134/93
[2024-09-16 08:39] LABS: Hematocrit 31.2 % (39.0-52.0); Hemoglobin 10.3 g/dL (13.0-18.0); Mean Corpuscular Hgb 30.7 pg (27.0-31.0); Mean Corpuscular Volume 93.1 fL (80.0-94.0); Mean Platelet Volume 9.6 fL (7.4-10.4); Platelet Count 287 10^3/uL (130-400); Red Blood Cell Count 3.35 10^6/uL (4.70-6.10); Red Cell Dist. Width 14.7 % (11.5-14.5); White Blood Cell Count 13.6 10^3/uL (4.8-10.8)
--- NOTE | 2024-09-16 08:40 | W.PN.HOSP.TC ---
Today's Communication/Plan
-
Discharge to short-term rehab when insurance authorization has been obtained
Assessment / Plan
Assessment / Plan
A/P: Patient is a 59y M with PMH significant for prior hemorrhagic CVA and subsequent debilitation who presents to ED from local [place] for evaluation of fever and SOB.
RUL Pneumonia - Likely Aspiration
Septic Shock secondary to the above
- ICU admit downgraded to med/surg
- Patient presented with fever, tachycardic, tachypnea and leukocytosis with RUL opacity on CXR.
- Treated empirically with IV abx levofloxacin and Flagyl switched to Meropenem and Vancomycin as per ID, IV vanc since completed
- Appreciate ID input, s/p Merrem x 5 days for pneumonia
- Medically stable for discharge back to his rehab facility when insurance authorization has been obtained
History of CDiff Colitis
On broad spectrum abx
CDiff Toxin positive
Continue oral Vancomycin taper: 125mg po qid through 09/25/24,
then Vancomycin 125 mg po tid x 7 days
then Vancomycin 125 mg po bid x 7 days
then Vancomycin 125 mg po qd x 7 days
then Vancomycin 125 mg po qod x 7 days
S/p Hemorrhagic CVA
Dysarthria / Dysphagia secondary to the above
Ataxia / Ambulatory Dysfunction secondary to the above
- CT appreciated post-operative / post-CVA changes - but no acute intracranial bleeding, etc.
- Neurology eval appreciated
- Aspiration precautions as noted above.
- PT / OT appreciated SNF rehab
- Speech evaluation appreciated
Benign Hypertension
Sinus Tachy
-Resumed home labetalol 100 mg every 8 hours as blood pressure is elevated
Concerns for Depression Chronic Illness
Patient intermittently tearful
-Psychiatry following, started on sertraline 100 mg daily on 09/16/2024
Prolonged QTc
-QTc is prolonged at 491 ms
�Recommend avoiding Zofran and other QTc prolonging agents
History of Pulmonary Embolism
DVT Prophylaxis
- S/p IVC Filter placement in [place] and on prophylactic dose Lovenox.
- Continue Lovenox.
Nutrition
- tube feeds resumed as per dietary recommendations
GJ Tube
-Significant discharge/drainage noted
-Tube check concerning for malposition, IR consulted and tube subsequently changed 09/10/24
DVT prophylaxis�subcu Lovenox
Code Status - DNR confirmed by son/POA
Updated son 09/15
Total time spent to see the patient on the floor, examine the patient, review data and lab results, discuss treatment plan with patient, nursing staff around 41 minutes.
Physical Exam
General: Appears debilitated, but in no acute distress
HEENT: normocephalic atraumatic EOMI
Respiratory: Clear to auscultation b/l
Cardiac: S1/S2 sinus tachy
GI: Soft, Non Tender, Non Distended, bowel sounds present, GJ- tube present
Musculoskeletal: No Clubbing, No Cyanosis
Bilateral lower extremity edema noted
Neuro: Awake, Alert, RUE weakness, Dysarthria, aphasic
Psych: Calm, tearful at times
Anticipated Discharge: Within 24 hours
Subjective/Interval History
-
Date of Service: September 16, 2024
No acute events overnight. Patient is tolerating his tube feeds. No fever, no vomiting.
Objective Data
-
Labs:
Laboratory Results
09/16/24 09/16/24
07:36 07:37
WBC 13.6 H
Hgb 10.3 L
Hct 31.2 L
Plt Count 287
Sodium Pending
Potassium Pending
Chloride Pending
Carbon Dioxide Pending
BUN Pending
Creatinine Pending
Glucose Pending
Calcium Pending
Vital Signs:
Vital Signs
Temp Pulse Resp BP Pulse Ox
98.2 F 102 16 171/100 96
09/15/24 23:25 09/16/24 05:23 09/15/24 23:25 09/16/24 05:23 09/15/24 23:25
I&O
09/15/24 09/16/24 09/17/24
06:59 06:59 06:59
Intake Total 1322.5 / 1322.5
Output Total 1225 / 1225 2159 / 2159
Balance 97.5 / 97.5 -2160 / -2159
[2024-09-16 09:09] LABS: Blood Urea Nitrogen 18 mg/dl (9-20); Calcium 8.7 mg/dl (8.4-10.2); Carbon Dioxide 34 mmol/L (22-30); Chloride 98 mmol/L (98-107); Estimated Creatinine Clearance > 125 ml/min; Glucose 104 mg/dl (70-99); Magnesium 1.8 mg/dl (1.6-2.3); Potassium 4.4 mmol/L (3.5-5.1); Sodium 135 mmol/L (135-145); eGFR > 60.00
[2024-09-16] MEDS: LOW STRENGTH ASPIRIN 81 MG TUBE (09:59)
[2024-09-16] MEDS: ZOLOFT 100 MG TUBE (10:00)
[2024-09-16] MEDS: NSS (PRESERVATIVE FREE) 10 ML IV (10:01)
[2024-09-16] MEDS: PROTONIX IV 40 MG IV (10:01)
[2024-09-16] MEDS: LOVENOX 40 MG SC (10:01)
--- NOTE | 2024-09-16 10:57 | W.PN.ID1 ---
Date of Service
Date of Service: September 16, 2024
Today's Communication
DC meropenem.
Continue Vancomycin 125mg po qid through 09/25/24
then Vancomycin 125 mg po tid x 7 days
then Vancomycin 125 mg po bid x 7 days
then Vancomycin 125 mg po qd x 7 days
then Vancomycin 125 mg po qod x 7 days
Assessment / Plan
# RUL aspiration pneumonia.
# s/p Sepsis
# Recurrent C. difficile
# Recent hx hemorrhagic CVA, prolonged hospital stay
# Dysphagia s/p PEG
# Zosyn/cefepime allergy listed - pt states he tolerated amoxicillin in the past
# SNF resident
- Completed meropenem for PNA. DC meropenem.
- Recurrent C. diff: diarrhea resolved
Continue Vancomycin 125mg po qid through 09/25/24
then Vancomycin 125 mg po tid x 7 days
then Vancomycin 125 mg po bid x 7 days
then Vancomycin 125 mg po qd x 7 days
then Vancomycin 125 mg po qod x 7 days
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
Hemorrhagic cerebral CVA
J-tube in place
Dysphagia
History of pulmonary embolism
IVC filter in place requiring prophylactic Lovenox
Hypertension
Recurrent C. difficile infection
Chief Complaint
-: Pneumonia
Vital Signs / Physical Exam
Vital Signs
Vital Signs
Temp Pulse Resp BP Pulse Ox
98.3 F 101 16 134/93 100
09/16/24 08:10 09/16/24 08:10 09/16/24 08:10 09/16/24 08:10 09/16/24 08:10
Physical Exam
Constitutional: Chronically Ill
Cardiovascular: Regular Rate and S1/S2
Pulmonary: Other (decreased BS )
Gastrointestinal: Soft, Non Tender and Non Distended
Extremities: Negative Edema
Objective Data
Lab Data
Lab Results
09/16/24 07:37
09/16/24 07:36
PT 14.8 Sec (11.4-14.6) H 09/10/24 05:06
INR 1.11 09/10/24 05:06
APTT 35.1 Sec (23.4-35.0) H 09/10/24 05:06
Estimated Creat Clear > 125 ml/min 09/16/24 07:36
Lactic Acid 1.8 mmol/L (0.7-2.0) 09/10/24 10:43
Total Bilirubin 0.4 mg/dl (0.2-1.3) 09/10/24 06:38
AST 23 U/L (17-59) 09/10/24 06:38
ALT 40 U/L (0-50) 09/10/24 06:38
Alkaline Phosphatase 64 U/L (38-126) 09/10/24 06:38
Most recent labs reviewed.
Micro Results:
09/09/24 20:53 Blood Culture - Final
Blood/Venous No Growth - Final Report
09/09/24 20:33 Blood Culture - Final
Blood/Venous No Growth - Final Report
09/12/24 11:01 - Final
Feces/Stool
09/12/24 11:01 C. difficile GDH Antigen & Toxins - Final
Feces/Stool Toxigenic C.difficile Positive
09/10/24 14:00 Nasal Screen MRSA (PCR) - Final
Nose MRSA not detected - performed by PCR methodology.
09/09/24 20:33 Influenza Types A & B (MOISES) - Final
Nasal Swab Negative for Influenza A & B, NAAT
Negative results must be combined with clinical observations
and patient history.
Nucleic Acid Amplification test (NAAT)performed on the
[employer] platform.
09/09/2024 chest x-ray; Probable right upper lobe pneumonia. Recommend imaging follow-up to exclude underlying mass.
09/09/2024 CT head without IV contrast; No convincing acute intracranial abnormality noted. Chronic senescent and postsurgical changes as described.
--- NOTE | 2024-09-16 11:09 | CM ---
Addendum entered by Lexy Sanchez 09/16/24 16:00:
Call to patients son, Marty, to update awaiting authorization.
Original Note:
CM reviewed chart, placed call to patients insurance to obtain update on authorization. Patient informed auth has been approved 09/16-09/22 to [facility]. CM reviewed with insurance- explained information provided yesterday was for patient
to go to a Care Home Facility to [facility], authorization is not correct and needs to be changed to correct accepting facility and accepting Doctor. Insurance will resubmit information, authorization remains pending, case# [id number].
Plan; [facility] SNF, awaiting auth, OOH DNR placed on chart, ambulance forms placed on chart.
[facility]
Report: [phone]
[2024-09-16 13:00] VITALS: BP 130/90
[2024-09-16 16:00] VITALS: BP 136/103
[2024-09-16 20:04] VITALS: BP 141/104
[2024-09-16] MEDS: LIPITOR 80 MG TUBE (20:06)
[2024-09-16 23:30] VITALS: BP 137/88
[2024-09-17 03:23] VITALS: BP 162/105
[2024-09-17] MEDS: FIRVANQ 125 MG TUBE ×3 (03:24→13:48)
[2024-09-17] MEDS: TRANDATE 100 MG TUBE ×2 (03:24→12:45)
[2024-09-17 06:00] VITALS: BMI 23.4
[2024-09-17 07:30] VITALS: BP 149/96
[2024-09-17 08:20] LABS: Hematocrit 31.5 % (39.0-52.0); Hemoglobin 10.3 g/dL (13.0-18.0); Mean Corp Hgb Conc. 32.7 g/dL (33.0-37.0); Mean Corpuscular Hgb 30.4 pg (27.0-31.0); Mean Corpuscular Volume 92.9 fL (80.0-94.0); Mean Platelet Volume 9.5 fL (7.4-10.4); Platelet Count 264 10^3/uL (130-400); Red Blood Cell Count 3.39 10^6/uL (4.70-6.10); Red Cell Dist. Width 14.8 % (11.5-14.5); White Blood Cell Count 10.8 10^3/uL (4.8-10.8)
[2024-09-17] MEDS: LOW STRENGTH ASPIRIN 81 MG TUBE (08:48)
[2024-09-17] MEDS: ZOLOFT 100 MG TUBE (08:48)
[2024-09-17] MEDS: NSS (PRESERVATIVE FREE) 10 ML IV (08:49)
[2024-09-17] MEDS: PROTONIX IV 40 MG IV (08:49)
[2024-09-17] MEDS: LOVENOX 40 MG SC (08:49)
--- NOTE | 2024-09-17 09:07 | W.PN.HOSP.TC ---
Today's Communication/Plan
-
Discharged to short-term rehab today
Assessment / Plan
Assessment / Plan
A/P: Patient is a 59y M with PMH significant for prior hemorrhagic CVA and subsequent debilitation who presents to ED from local [place] for evaluation of fever and SOB.
RUL Pneumonia - Likely Aspiration
Septic Shock secondary to the above
- ICU admit downgraded to med/surg
- Patient presented with fever, tachycardic, tachypnea and leukocytosis with RUL opacity on CXR.
- Treated empirically with IV abx levofloxacin and Flagyl switched to Meropenem and Vancomycin as per ID, IV vanc since completed
- Appreciate ID input, s/p Merrem x 5 days for pneumonia
- Medically stable for discharge back to his rehab facility today
History of CDiff Colitis
On broad spectrum abx
CDiff Toxin positive
Continue oral Vancomycin taper: 125mg po qid through 09/25/24,
then Vancomycin 125 mg po tid x 7 days
then Vancomycin 125 mg po bid x 7 days
then Vancomycin 125 mg po qd x 7 days
then Vancomycin 125 mg po qod x 7 days
S/p Hemorrhagic CVA
Dysarthria / Dysphagia secondary to the above
Ataxia / Ambulatory Dysfunction secondary to the above
- CT appreciated post-operative / post-CVA changes - but no acute intracranial bleeding, etc.
- Neurology eval appreciated
- Aspiration precautions as noted above.
- PT / OT appreciated SNF rehab
- Speech evaluation appreciated
Benign Hypertension
Sinus Tachy
-Resumed home labetalol 100 mg every 8 hours as blood pressure is elevated
Concerns for Depression Chronic Illness
Patient intermittently tearful
-Psychiatry following, started on sertraline 100 mg daily on 09/16/2024
Prolonged QTc
-QTc is prolonged at 491 ms
�Recommend avoiding Zofran and other QTc prolonging agents
History of Pulmonary Embolism
DVT Prophylaxis
- S/p IVC Filter placement in [place] and on prophylactic dose Lovenox.
- Continue Lovenox.
Nutrition
- tube feeds resumed as per dietary recommendations
GJ Tube
-Significant discharge/drainage noted
-Tube check concerning for malposition, IR consulted and tube subsequently changed 09/10/24
DVT prophylaxis�subcu Lovenox
Code Status - DNR confirmed by son/POA
Updated son 09/15
Physical Exam
General: Appears debilitated, but in no acute distress
HEENT: normocephalic atraumatic EOMI
Respiratory: Clear to auscultation b/l
Cardiac: S1/S2 sinus tachy
GI: Soft, Non Tender, Non Distended, bowel sounds present, GJ- tube present
Musculoskeletal: No Clubbing, No Cyanosis
Bilateral lower extremity edema noted
Neuro: Awake, Alert, RUE weakness, Dysarthria, aphasic
Psych: Calm, tearful at times
Anticipated Discharge: Today
Subjective/Interval History
-
Date of Service: September 17, 2024
No acute changes. No vomiting. He is tolerating his tube feeds. Continues to have intermittent loose stools. No fever.
Objective Data
-
Labs:
Laboratory Results
09/17/24
07:48
WBC 10.8
Hgb 10.3 L
Hct 31.5 L
Plt Count 264
Sodium Pending
Potassium Pending
Chloride Pending
Carbon Dioxide Pending
BUN Pending
Creatinine Pending
Glucose Pending
Calcium Pending
Vital Signs:
Vital Signs
Temp Pulse Resp BP Pulse Ox
98.6 F 95 18 149/96 95
09/17/24 07:30 09/17/24 07:30 09/17/24 07:30 09/17/24 07:30 09/17/24 07:30
I&O
09/16/24 09/17/24 09/18/24
06:59 06:59 06:59
Intake Total 1290 / 1290 1490 / 1490
Output Total 2160 / 2160 1900 / 1900
Balance -870 / -870 -410 / -410
[2024-09-17 09:09] LABS: Blood Urea Nitrogen 19 mg/dl (9-20); Calcium 9.2 mg/dl (8.4-10.2); Carbon Dioxide 34 mmol/L (22-30); Chloride 99 mmol/L (98-107); Estimated Creatinine Clearance > 125 ml/min; Glucose 120 mg/dl (70-99); Magnesium 1.8 mg/dl (1.6-2.3); Potassium 4.4 mmol/L (3.5-5.1); Sodium 135 mmol/L (135-145); eGFR > 60.00
--- NOTE | 2024-09-17 10:03 | CM ---
Addendum entered by Minnie Mays 09/17/24 11:10:
CT sent to [facility] as requested.
Addendum entered by Minnie Mays 09/17/24 10:22:
Updated clinicals faxed to admissions at [facility] Auth confirmed with Neena at [facility], ref # [id number]
Original Note:
terminal operations manager spoke with Neena at [facility] this morning [phone] and patient has been approved for skilled placement at [facility], Auth [id number], Auth provided to [facility] admissions.
Plan; Patient to transfer by ambulance today to [facility] Assisted today.
[facility]
Report: [phone]
--- NOTE | 2024-09-17 13:52 | W.DCSUMMARY ---
Discharge Summary
Discharge Data
Date of Admission: 09/09/24
Date of Discharge: 09/17/24
-
Pending Results: No
Hospital Course
Discharge diagnosis:
Septic shock
Right upper lobe pneumonia, likely aspiration
History of Clostridium difficile colitis, with Clostridium difficile toxin positive
History of hemorrhagic stroke status post craniotomy with residual dysarthria and dysphagia
Ataxia/ambulatory dysfunction
Essential hypertension
Sinus tachycardia
Depression
History of pulmonary embolism status post inferior vena cava filter placement on prophylactic Lovenox
Malpositioned percutaneous endoscopic gastric�jejunostomy tube status post replacement
Consults: Securities Analyst, ID, psychiatry, neurology
Hospital course:
59-year-old male with a past medical history of hemorrhagic stroke with residual dysarthria, dysphagia, ambulatory dysfunction, hypertension, and pulmonary embolism status post inferior vena cava filter, was admitted for septic shock secondary to
right upper lobe pneumonia. Patient was seen in conjunction with the civil rights representative. He was treated with IV antibiotics. His home blood pressure medications were held. He received pressure support. Patient's blood pressure improved. He was weaned
off of pressors, and transferred out of the ICU.
Patient was seen in conjunction with ID. He was treated with IV Merrem and IV vancomycin. He has a history of C. difficile colitis, and he was positive for C. difficile toxin. He was treated with oral vancomycin.
Patient has a PEG�J tube, which was leaking. IR was consulted, it was noted to be malpositioned on the tube check. The tube was changed by IR. Patient's PEG�J-tube functioned well afterwards, he tolerated his tube feeds.
Patient was noted to be depressed, and was seen in conjunction with psychiatry. He was started on Zoloft for his depression. His QTc is prolonged, therefore it is important to avoid QTc prolonging agents, such as Zofran and Lexapro. Zoloft does
not prolong QTc.
Patient was initially a full code. It was discussed with patient's son that patient is depressed, since he does not have a quality of life. Patient's son agreed to changing patient's CODE STATUS to DNR.
Patient's multiple medical conditions have been optimized. Patient completed his IV Merrem and IV vancomycin for his pneumonia. ID recommends that he be discharged on an oral vancomycin taper for his C. difficile diarrhea. He needs to follow-up
with his primary care doctor in 1 week.
Disposition: Short-term rehab
Discharge planning: Required 50 minutes
Discharge Plan
-
Patient Disposition: Assisted/SNF
Discharge Diagnosis/Procedures: Septic shock, pneumonia likely from aspiration, C. difficile diarrhea, hypertension, depression, history of pulmonary embolism on Lovenox, history of hemorrhagic stroke with dysarthria and dysphagia, prolonged QTc
interval
Condition: Fair
Diet: Tube feeding
Activity: As tolerated
Others Tests: EKG on 09/20/24 to monitor QTc
Activity Restrictions/Additional Instructions:
Patient has prolonged QTc of 491 ms.
Avoid Zofran and other medications that could prolong the QTc interval.
Vancomycin taper: 125mg po qid through 09/25/24,
then Vancomycin 125 mg po tid x 7 days
then Vancomycin 125 mg po bid x 7 days
then Vancomycin 125 mg po qd x 7 days
then Vancomycin 125 mg po qod x 7 days
Referrals:
Francis Ramirez MD [Family Provider] - in one week
Prescriptions:
New
vancomycin 25 mg/mL recon soln
See Rx Instructions .ROUTE .COMPLEX Qty: 300 0RF
Rx Instructions:
125mg po qid through 09/25/24,
125mg po tid x7d
125mg po bid x7d
125mg po qd x7d
125mg po qod x7d
sertraline 100 mg Tablet
100 mg feeding tube DAILY Qty: 0 0RF
Continued
methocarbamol 500 mg Tablet
500 mg feeding tube TID
atorvastatin 80 mg Tablet
80 mg feeding tube HS
acetaminophen [Tylenol] 325 mg Tablet
650 mg feeding tube Q4HPRN MDD 3000 mg PRN (Reason: mild pain/fever >100)
ipratropium-albuterol 0.5 mg-3 mg(2.5 mg base)/3 mL Solution For Nebulization
3 ml INHALATION R Q6HPRN PRN (Reason: wheezing)
polyethylene glycol 3350 17 gram Powder In Packet
17 g feeding tube DAILYPRN PRN (Reason: constipation)
naloxone 0.4 mg/mL Solution
0.4 mg SC DAILYPRN PRN (Reason: opioid reversal)
prochlorperazine maleate 5 mg Tablet
5 mg feeding tube Q6H
magnesium hydroxide [Milk of Magnesia] 400 mg/5 mL Suspension
30 ml feeding tube [id number] PRN (Reason: no bm 3 days)
meclizine 25 mg Tablet
25 mg feeding tube TID
bisacodyl [Dulcolax (bisacodyl)] 10 mg Suppository
10 mg SC DAILYPRN PRN (Reason: if mom is ineffective)
lidocaine 5 % Adhesive Patch,Medicated
1 patch TOPICAL DAILY
Fleet Enema 19-7 gram/118 mL Enema
118 ml SC DAILYPRN PRN (Reason: if dulcolax ineffective)
camphor-menthol 0.3-0.3 % Gel
1 ea TOPICAL Q8HPRN PRN (Reason: mild pain)
aspirin 81 mg Tablet,Chewable
81 mg feeding tube DAILY
scopolamine base 1 mg over 3 days Patch 3 Day
1 patch TRANSDERMAL Q72H
labetalol 100 mg Tablet
100 mg feeding tube Q8H
Rx Instructions:
Hold if SBP<100 and HR<60
fluticasone propionate 50 mcg/actuation [place],Suspension
1 spray INTRANASAL BID
simethicone 80 mg Tablet,Chewable
80 mg feeding tube Q6HPRN PRN (Reason: flatulence)
enoxaparin 40 mg/0.4 mL Syringe
40 mg SC DAILY
esomeprazole magnesium [address] For Susp In Packet
20 mg feeding tube DAILY
magnesium oxide 400 mg magnesium Tablet
400 mg feeding tube DAILY
banana chkgak-ALL-sqgeu 5 gram-45 kcal/60 mL Liquid In Packet
60 ml FEEDING TUBE TID
Discontinued
ondansetron HCl 4 mg Tablet
4 mg feeding tube Q6HPRN PRN (Reason: nausea/vomiting)
Discharge Orders:
Discharge Patient (As Directed); Ordered 09/16/24
Ordered By: Reji Kimball
Discharge Date and Time
Discharge Date/Time: 09/17/24 15:11
Print Language: ROMANIAN
== END 2024-09-17 15:11 | DRG 871 ==
LOC: 4 WEST ACU 22:59
PROVIDERS: Internal Medicine; Nurse Practitioner Family; Radiology Vascular & Interventional Radiology; ADMITTING PHYSICIAN Hospitalist; ATTENDING PHYSICIAN Family Medicine; CONSULT PHYSICIAN Internal Medicine Critical Care Medicine; CONSULT PHYSICIAN Internal Medicine Infectious Disease; CONSULT PHYSICIAN Psychiatry & Neurology Neurology; CONSULT PHYSICIAN Psychiatry & Neurology Psychiatry; EMERGENCY PHYSICIAN Emergency Medicine; FAMILY PHYSICIAN Internal Medicine
PROC: 0D2DXUZ Change Feeding Device in Lower Intestinal Tract, External Approach (ICD-10-PCS; 2024-09-11)
DX: A41.89 Other specified sepsis (principal); J69.0 Pneumonitis due to inhalation of food and vomit; R65.21 Severe sepsis with septic shock; A04.71 Enterocolitis due to Clostridium difficile, recurrent; T85.528A Displacement of other gastrointestinal prosthetic devices, implants and grafts, initial encounter; Y73.8 Miscellaneous gastroenterology and urology devices associated with adverse incidents, not elsewhere classified; I69.322 Dysarthria following cerebral infarction; I69.391 Dysphagia following cerebral infarction; I10 Essential (primary) hypertension; F32.A Depression, unspecified; Z95.828 Presence of other vascular implants and grafts; Z66 Do not resuscitate; Z86.711 Personal history of pulmonary embolism
CPT/HCPCS: 49452; 49465; 51701; 70450; 71045; 80048; 80053; 81003; 81015; 82248; 82805; 83605; 83735; 84100; 85025; 85027; 85610; 85730; 87040; 87324; 87449; 87502; 87641; 87798; 87811; 92507; 92523; 92610; 93005; 96361; 96374; 96375; 97163; 97167; 97530; 97535; 99291; C1769; C1887